=== PATIENT | female | born 1945 | race Caucasian/White ===

== ENCOUNTER 2017-09-17 08:30 | Inpatient (IN) | payer MEDICARE, OTHER ==
[2017-09-17] VITALS (11 sets, daily range): BP systolic 104–167; BP diastolic 57–102; PULSE 78–112; RESP 16–28; TEMP 97.6–98.4; O2SAT 91–97
[~2017-09-17] VITALS: Ht 170.2 cm; Wt 59.8 kg
[~2017-09-17 08:30] MED LIST: ACET20SO3 NEB; BUSP5TAB PEG; Budeson-Formot 160-4.5 Mcg Inh INH; CEFE2INJ2 IV; Chlorhexidine 0.12% Liq SWISH-SPIT; ENOX40IN SQ; FAMO40SU4 PEG; FLUT50SP EACH NARE; GABA250S7 PEG; GUAI100S7 PEG; IPRASOL INH; LACTG PEG; LEVO100T5 PEG; LOPE2CAP2 PO; METO25TA3 PEG; MIDO5TAB PO; Metoclopramide Liq PO; ONDA4TAB15 SL; PRED20 PO; SPIRCAP INH; TRAM50TA PEG; TRAZ50TA12 PEG; ZOSY3.375P IV
[2017-09-17] MEDS ORDERED: METO25TA3 PEG (08:35)
[2017-09-17] MEDS ORDERED: TRAZ50TA12 PEG (08:35)
[2017-09-17] MEDS: SODIUM CHLOR 0.9% 1000 ML INJ 1,000 ML IV SCH ×2 (09:27→21:20)
[2017-09-17] MEDS ORDERED: SENNOSIDES 8.6 MG TAB PO PRN (09:30)
[2017-09-17] MEDS ORDERED: ONDANSETRON ODT 4 MG TAB PO PRN (09:30)
[2017-09-17] MEDS ORDERED: LIDOCAINE HCL 2% 100 MG/5 ML SYRINGE IV PUSH ONE (09:30)
[2017-09-17] MEDS ORDERED: BISACODYL 10 MG SUPP RECTAL PRN (09:30)
[2017-09-17] MEDS ORDERED: LACTULOSE SYRUP 20 GM/30 ML CUP PO PRN (09:30)
[2017-09-17] MEDS ORDERED: SODIUM CHLORIDE 0.9% FLUSH 10 ML FLUSH IV FLUSH PRN (09:30)
[2017-09-17] MEDS ORDERED: ACETAMINOPHEN 325 MG TAB PO PRN (09:30)
[2017-09-17] MEDS ORDERED: CHLORHEXIDINE GLUCONATE 2 % 1 PACK (2 CLOTHS) TOP PRN (09:30)
[2017-09-17] MEDS ORDERED: RESP: ALBUTEROL 2.5 MG/3 ML NEB (PRN) INH (09:30)
[2017-09-17] MEDS ORDERED: NURSING INFORMATION XX SCH (09:30)
[2017-09-17] MEDS ORDERED: MAGNESIUM HYDROXIDE SUSP 30 ML CUP PO PRN (09:30)
[2017-09-17] MEDS ORDERED: Vancomycin Consult Pharmacy 1 EA OTHER SCH (09:45)
[2017-09-17] MEDS ORDERED: PILL SPLITTER OTHER PRN (10:00)
[2017-09-17] MEDS ORDERED: IOHEXOL 350 MG/ML 10 ML VIAL (for RAD DIAG) IVCONTRAST ONE (10:28)
--- NOTE | 2017-09-17 10:44 | HHI.HP ---
[facility] Service Critical Care Medicine Primary Care Physician Leon Osorio M.D. Admission Diagnosis Acute respiratory failure likely secondary to aspiration Diagnosis: (1) Acute and chronic respiratory failure with hypoxia Diagnosis: Principal (2) Aspiration pneumonia Diagnosis: Principal (3) Difficult airway for intubation Diagnosis: Principal (4) Thrombocytosis Diagnosis: Secondary (5) Leukocytosis Diagnosis: Secondary (6) Migraine headache Diagnosis: Secondary (7) Anemia of chronic disease Diagnosis: Secondary (8) Hypoalbuminemia Diagnosis: Secondary (9) S/P percutaneous endoscopic gastrostomy (PEG) tube placement Diagnosis: Secondary (10) Hypothyroidism Diagnosis: Secondary (11) HTN (hypertension) Diagnosis: Secondary (12) HLD (hyperlipidemia) Diagnosis: Secondary (13) Dysphagia Diagnosis: Principal (14) Adjustment disorder with anxiety Diagnosis: Secondary (15) Impaired mobility and activities of daily living Diagnosis: Secondary (16) Loculated pleural effusion Diagnosis: Secondary (17) Urinary retention Diagnosis: Principal Chief Complaint: Acute hypoxemia status post emesis in rehab Travel History International Travel<30 Days: No Contact w/Intl Traveler <30 Da: No Traveled to Known Affected Are: No Sepsis Criteria SIRS Criteria (2 or more): RR > 20 or PaCO2 < 32, WBC > 68404, < 4000 or > 10 % bands Sepsis Criteria (SIRS+source): Infect source susp/known History of Present Illness This is a 72-year-old female. Date of admission 09/17/2017. Past medical history includes laryngeal cancer status post radical neck dissection radiation therapy, essential hypertension, hyperlipidemia, hypothyroidism, depression/chronic dysphagia status post PEG tube placement and chronic respiratory failure status post tracheostomy. He was originally admitted to [facility] 07/24 with dysphasia. Due to workup she was noted to have a right-sided loculated pleural effusion. This was exudative and grew out Pseudomonas Aeruginosa.. Chest tubes were placed as the patient was thought to be too high risk due to high risk airway. She developed acute hypoxemic respiratory failure on July 23, 1999 he was intubated. Chest tubes removed August 12, 2017. She was trached and pegged. Further infectious etiology included stenotrophomonas August 15, 2017 treated with sulfamethoxazole/trimethoprim and Pseudomonas in sputum treated with cefepime. Tracheostomy was downsized to a # 6 Shiley on September 05, 2017. Patient was transferred [facility] where she was on room air with capped trach. Will evaluate pulmonology tracheostomy was removed early September 2017 Today, patient an episode of aspiration and desaturated. She is placed on 100% nonrebreather mask and transferred to [facility]. She had imaging which amount to locate in her medical record. She is currently on high flow nasal cannula with a repeat ABG pending. Chest x-ray revealed right lower lobe infiltrate/ effusion. All laboratories currently pending. Her airways approximately 2 cm once open. Review of Systems Constitutional: COMPLAINS OF: Weight loss, DENIES: Fatigue, Fever, Weight gain Endocrine: DENIES: Polydipsia, Polyuria Eyes: DENIES: Blurred vision, Vision loss Ears, nose, mouth, throat: DENIES: Tinnitus Respiratory: COMPLAINS OF: Sputum production, Shortness of breath, DENIES: Apneas, Wheezing Cardiovascular: DENIES: Chest pain Gastrointestinal: DENIES: Abdominal pain Genitourinary: DENIES: Urinary frequency Musculoskeletal: DENIES: Joint pain, Back pain Integumentary: DENIES: Pruritus Hematologic/lymphatic: DENIES: Bruising, Lymphadenopathy Immunologic/allergic: DENIES: Eczema Neurologic: DENIES: Abnormal gait, Headache Psychiatric: COMPLAINS OF: Anxiety, DENIES: Confusion, Depression Past Family Social History Allergies: Coded Allergies: ciprofloxacin (Unverified Adverse Reaction, Unknown, 09/11/17) Develops thrush Past Medical History Laryngeal cancer status post radical neck dissection/radiation therapy Migraine headache Adjustment disorder Anemia of chronic disease Essential hypertension Hyperlipidemia Chronic dysphasia Urinary retention Chronic prednisone use Loculated right pleural effusion/Pseudomonas gastroesophageal reflux disease Past Surgical History PEG tube placement Bladder suspension 2 Percutaneous tracheostomy Reported Medications Midrin 5 mg p.o. 3 x daily Tiotropium 18 mcg inhalation daily Gabapentin 100 mg by mouth daily Trazodone 100 mg by mouth at night Buspirone 5 mg by mouth 3 times daily Famotidine 20 mg by tube twice daily Prednisone 20 mg by tube twice daily Budesonide/formoterol 160/4.5 2 puffs twice daily Levothyroxine 100 mcg by mouth daily Metoprolol tartrate 12.5 mg by mouth twice daily Piperacillin/tazobactam 3.375 g IV every 8 hours Active Ordered Medications Reviewed in EMR Family History Mother with lung cancer Social History No tobacco, alcohol or illicit drug use Physical Exam Vital Signs Vital Signs Date Time Temp Pulse Resp B/P (MAP) Pulse Ox O2 Delivery O2 Flow Rate FiO2 09/17/17 10:00 98.1 112 28 167/102 (123) 95 09/17/17 07:25 91 15.00 09/17/17 07:25 91 Non-Rebreather 15.00 Physical Exam GENERAL: 72-year-old female currently resting in bed in mild respiratory distress SKIN: Warm and dry. Tinea cruris noted bilateral inguinal regions HEAD: Atraumatic. Normocephalic. EYES: Pupils equal and round about 3 mm bilaterally and reactive. No scleral icterus. No injection or drainage. ENT: No nasal bleeding or discharge. Mucous membranes pink and moist. NECK: Status post removal of tracheostomy with one suture in place. No erythema noted. Approximately 4 cm closing CARDIOVASCULAR: Regular rate and rhythm. S1, S2 predose for without murmur RESPIRATORY: No accessory muscle use. Coarse rhonchorous breath sounds are present bilaterally. No stridor. GASTROINTESTINAL: Abdomen soft, non-tender, nondistended. PEG tube placed in left upper quadrant. Clean dry and intact MUSCULOSKELETAL: Extremities without significant peripheral edema. No obvious deformities. NEUROLOGICAL: Awake and alert. No obvious cranial nerve deficits. Motor grossly within normal limits. Five out of 5 muscle strength in the arms and legs. Normal fluent speech. Imaging Chest x-ray revealed right lower lobe infiltrate/pleural effusion. Hyperexpanded with Septic Shock Reassessment Septic shock perfusion: reassessment completed Caprini VTE Risk Assessment Caprini VTE Risk Assessment: Mod/High Risk (score >= 2) Caprini Risk Assessment Model Point Value = 1 Point Value = 2 Point Value = 3 Point Value = 5 Age 41-60 Minor surgery BMI > 25 kg/m2 Swollen legs Varicose veins or History of unexplained or recurrent spontaneous Oral contraceptives or hormone replacement Sepsis (< 1 month) Serious lung disease, including pneumonia (< 1 month) Abnormal pulmonary function Acute myocardial infarction Congestive heart failure (< 1 month) History of inflammatory bowel disease Medical patient at bed rest Age 61-74 Arthroscopic surgery Major open surgery (> 45 min) Laparoscopic surgery (> 45 min) Malignancy Confined to bed (> 72 hours) Immobilizing plaster cast Central venous access Age >= 75 History of VTE Family history of VTE Factor V Leiden Prothrombin [id number] Lupus anticoagulant Anticardiolipin antibodies Elevated serum homocysteine Heparin-induced thrombocytopenia Other congenital or acquired thrombophilia Stroke (< 1 month) Elective arthroplasty Hip, pelvis, or leg fracture Acute spinal cord injury (< 1 month) Prophylaxis Regimen Total Risk Factor Score Risk Level Prophylaxis Regimen 0-1 Low Early ambulation 2 Moderate Order ONE of the following: *Sequential Compression Device (SCD) *Heparin 5000 units SQ BID 3-4 Higher Order ONE of the following medications: *Heparin 5000 units SQ TID *Enoxaparin/Lovenox 40 mg SQ daily (WT < 150 kg, CrCl > 30 mL/min) *Enoxaparin/Lovenox 30 mg SQ daily (WT < 150 kg, CrCl > 10-29 mL/min) *Enoxaparin/Lovenox 30 mg SQ BID (WT < 150 kg, CrCl > 30 mL/min) AND/OR *Sequential Compression Device (SCD) 5 or more Highest Order ONE of the following medications: *Heparin 5000 units SQ TID (Preferred with Epidurals) *Enoxaparin/Lovenox 40 mg SQ daily (WT < 150 kg, CrCl > 30 mL/min) *Enoxaparin/Lovenox 30 mg SQ daily (WT < 150 kg, CrCl > 10-29 mL/min) *Enoxaparin/Lovenox 30 mg SQ BID (WT < 150 kg, CrCl > 30 mL/min) AND *Sequential Compression Device (SCD) Assessment and Plan Assessment and Plan Neuro/Psych: Adjustment disorder Depression/anxiety Peripheral neuropathy Medications include gabapentin 100 mg at night, trazodone 100 mg at night and buspirone 5 mg every 8 hours Acetaminophen 650 mg by tube every 6 hours as needed fever Hydrocodone/acetaminophen 5/25 1 tablet every 4 hours as needed pain 1 through 5 Morphine sulfate 2 mg every 2 hours as needed CV: Essential hypertension Currently normal saline at 84 cc an hour Currently metoprolol tartrate 12.5 mg by mouth twice daily continue. Patient is on midodrine 5 mg 3 times daily? Resp: Acute on chronic respiratory failure Previously followed by Dr. Clayton Removal of percutaneous tracheostomy 09/23 Currently on high flow nasal cannula 35 L/minute 70% FiO2 09/17 CT pulmonary angiogram revealed no evidence of pulmonary embolism. Increasing groundglass opacity and consolidating airspace disease throughout both lungs. Stable bilateral pleural effusions. Chest x-ray on 4 revealed right lower lobe infiltrate/effusion Currently on albuterol/ipratropium aerosols every 4 hours with albuterol aerosols every 2 hours as needed dyspnea Difficult airway. Patient is only able to open her mouth 2 cm. GI: Hypoalbuminemia Nausea/vomiting Tube feeding on hold secondary to aspiration Check LFTs, amylase lipase. Check KUB Famotidine 20 mg twice daily/prior medication currently hold. Currently on pantoprazole 40 mg IV daily Docusate sodium/senna 1 tablet twice daily for bowel regimen : History of bladder suspension 2 Urinary retention Patient was straight cathed on the floor. Endo: Chronic prednisone use Switch prednisone 20 mg twice daily to his methylprednisolone succinate 40 mg IV twice daily Sliding scale insulin with Novulog with Accu-Cheks every 6 hours to maintain euglycemia/low regimen Renal: Creatinine previously within normal limits Monitor urine output Accurate I's and O Heme: Leukocytosis Anemia of chronic disease Thrombocytosis likely reactive Monitor CBC daily and coags. Follow trends No indication for transfusion of blood products at this time ID: Aspiration pneumonia Pseudomonas aeruginosa pneumonia/sputum positive History of Acinobacter History of Pseudomonas empyema History of Sangeeta tropicalis cystitis Currently piperacillin/tazobactam and vancomycin Blood cultures 2, sputum and UA all ordered MSK: PT evaluate and treat FEN: Replace electrolytes as clinically indicated Access -Left upper extremity PICC triple lumen Prophylaxis -GI -pantoprazole -DVT -SCD/enoxaparin Critical Care: The total critical care time was 35 minutes. Time to perform other separately billable procedures was not included in the critical care time. Code Status Full code Discussed Condition With Patient. ISC RN. CARE plan discussed and all questions answered. Problem Qualifiers (1) Aspiration pneumonia: Qualified Codes: J69.0 - Pneumonitis due to inhalation of food and vomit (2) Leukocytosis: Qualified Codes: D72.829 - Elevated white blood cell count, unspecified (3) Migraine headache: Qualified Codes: G43.909 - Migraine, unspecified, not intractable, without status migrainosus (4) Hypothyroidism: Qualified Codes: E03.9 - Hypothyroidism, unspecified (5) HTN (hypertension): Qualified Codes: I10 - Essential (primary) hypertension (6) HLD (hyperlipidemia): Qualified Codes: E78.00 - Pure hypercholesterolemia, unspecified (7) Dysphagia: Qualified Codes: R13.10 - Dysphagia, unspecified Deandre Barahona MD Sep 17, 2017 10:44
[2017-09-17] MEDS ORDERED: LABETALOL HCL 100 MG/20 ML VIAL IV PUSH PRN (10:45)
[2017-09-17] MEDS ORDERED: DEXTROSE 50% IN WATER 50 ML VIAL(D50) IV PUSH PRN (10:45)
[2017-09-17] MEDS ORDERED: GLUCAGON 1 MG/ML VIAL OTHER PRN (10:45)
[2017-09-17] MEDS: MORPHINE SULFATE 4 MG/ML INJ IV PUSH PRN ×2 (11:17→13:57)
[2017-09-17] MEDS: PIPERACIL-TAZO 4.5 GM PREMIX 100 ML IV SCH ×3 (11:18→21:21)
[2017-09-17] MEDS: ENOXAPARIN SODIUM 40 MG/0.4 ML SYRINGE SQ SCH (11:18)
[2017-09-17 11:52] LABS: INTERNATIONAL NORMALIZED RATIO 1.1 RATIO; PROTHROMBIN TIME - PATIENT 11.1 SEC (9.8-11.6)
[2017-09-17] MEDS: INSULIN ASPART SUPPLEMENTAL SCALE SQ SCH ×3 (12:00→23:29)
[2017-09-17] MEDS ORDERED: VANCOMYCIN INJ 1,250 MG in SODIUM CHLOR 0.9% 250 ML INJ 250 ML IV ONE (12:00)
[2017-09-17 12:03] LABS: ALBUMIN 2.7 GM/DL (3.4-5.0); AST (GOT) 17 U/L (15-37); BICARBONATE 34.5 MEQ/L (21.0-32.0); BLOOD UREA NITROGEN 21 MG/DL (7-18); CALCIUM 9.4 MG/DL (8.5-10.1); CHLORIDE 84 MEQ/L (98-107); CHOLESTEROL 222 MG/DL (120-200); CREATININE 0.58 MG/DL (0.50-1.00); DIRECT BILIRUBIN ADULT 0.1 MG/DL (0.0-0.2); GLOMERULAR FILTRATION RATE 103 ML/MIN (>89); GLUCOSE,RANDOM 144 MG/DL (74-106); SODIUM (NA) 132 MEQ/L (136-145); TRIGLYCERIDES 115 MG/DL (42-150)
[2017-09-17 12:14] LABS: ALKALINE PHOSPHATASE 106 U/L (45-117); ALT (GPT) 27 U/L (10-53); CHOLESTEROL/ HDL RATIO 4.22 RATIO; HDL CHOLESTEROL 52.5 MG/DL (40.0-60.0); INDIRECT BILIRUBIN 0.1 MG/DL (0.0-0.8); LDL CHOLESTEROL 147 MG/DL (0-99); PHOSPHORUS 3.3 MG/DL (2.5-4.9); TOTAL BILIRUBIN ADULT 0.2 MG/DL (0.2-1.0); TOTAL PROTEIN 7.6 GM/DL (6.4-8.2); TROPONIN I LESS THAN 0.02 NG/ML (0.02-0.05)
[2017-09-17] MEDS: MIDODRINE 5 MG TAB PO SCH ×2 (13:45→16:24)
[2017-09-17] MEDS: RESP: ALBUTEROL 2.5 MG/IPRATROPIUM 0.5 MG NEB (SCH) INH ×3 (16:53→23:27)
[2017-09-17] MEDS ORDERED: SODIUM CHLORID 0.9% 500 ML INJ 500 ML IV ONE (17:15)
[2017-09-17] MEDS ORDERED: ALBUMIN 5% INJ 250 ML IV ONE (17:15)
[2017-09-17 17:17] LABS: HEMOGLOBIN A1C 4.4 % (4.3-6.0)
[2017-09-17 18:00] LABS: HEMATOCRIT 22.7 % (35.0-46.0); HEMOGLOBIN 7.7 GM/DL (11.6-15.3); MEAN CORPUSCULAR HEMOGLOBIN 30.4 PG (27.0-34.0); MEAN CORPUSCULAR HGB CONC 33.8 % (32.0-36.0); MEAN PLATELET VOLUME 6.1 FL (7.0-11.0); PLATELET COUNT 485 TH/MM3 (150-450); RED BLOOD COUNT 2.52 MIL/MM3 (4.00-5.30); WHITE BLOOD COUNT 19.5 TH/MM3 (4.0-11.0)
--- NOTE | 2017-09-17 18:16 | MB ---
cc: Lizbet Clayton MD, V J MD DATE: 09/17/2017 REASON FOR CONSULTATION: Respiratory failure and history of tracheostomy. HISTORY OF PRESENT ILLNESS: This is a 72-year-old lady who has a past history for an upper airway squamous cell carcinoma who has had a history of respiratory failure and had a tracheostomy in place for the past month. The patient was initially admitted to [facility] ([place], [place]) and was treated for pneumonia and respiratory failure. She has had a prior history for radical neck dissection for laryngeal CA and dysphagia and has a PEG tube in place for tube feedings. Following her bout of respiratory failure and ventilator support, she was weaned off the ventilator and had her trach tube capped after which she was transferred to rehab at [facility]. She also had loculated right pleural effusion, which was drained prior to her transfer and this grew out Pseudomonas and she has been under antibiotic therapy given by the infectious disease service, which also included cefepime and Bactrim. The patient's tracheostomy tube was capped this past week and it was discontinued when she was doing well with just a nasal cannula at 2 liters. Over the past 2 days, the patient got worse with an episode of choking and aspiration while taking her diet and she had to be transferred to the intensive care unit for respiratory distress. Her O2 saturations were low and she thus has been placed on high flow oxygen at 50% FiO2 and is receiving nebulized bronchodilators as well as IV Solu-Medrol. She is coughing and does not bring up much sputum. She is running some low-grade fevers. Denies any chest or abdominal pains. PAST MEDICAL HISTORY: Has included laryngeal cancer, status post neck dissection and radiation therapy, history of hypertension and anemia, history of migraine headaches, hyperlipidemia, history of esophageal dysfunction and a history of recurrent pleural effusions and GERD. She has had bladder suspension surgery and tracheostomy. MEDICATIONS: 1. Trazodone 100 mg at bedtime. 2. Gabapentin 100 mg daily. 3. Prednisone 20 mg b.i.d. 4. Famotidine 20 mg b.i.d. 5. BuSpar 5 mg t.i.d. 6. Levothyroxine 100 mcg daily. 7. Symbicort 160/4.5 two puffs b.i.d. 8. Zosyn IV 3.375 grams every 8 hours. FAMILY HISTORY: Significant for lung cancer in her mother. HABITS AND SOCIAL HISTORY: The patient does not smoke. No significant alcohol use. REVIEW OF SYSTEMS: The patient has shortness of breath, cough, wheezing, chest congestion. No nausea, vomiting. No urinary symptoms. No leg or calf muscle pains, She has some joint pains of her extremities and some depression. PHYSICAL EXAMINATION: GENERAL: This is a thinly built, elderly lady was pale and mildly dyspneic at rest. VITAL SIGNS: Blood pressure 150/80, pulse is 105, respirations 22, temperature is 98.1. HEENT: Head is normocephalic. Pupils are reactive. Tongue is dry. Throat is injected. NECK: Supple. No bruits. No venous distention. Trach site is closed with a dressing. CHEST: Reveals coarse wheezes throughout both lung benito, prolonged expirations with occasional basilar crackles. HEART: Sounds are regular, S1 and S2. No murmur. ABDOMEN: Soft, scaphoid. No mass. No organomegaly. EXTREMITIES: No lesions. Decreased pulses. NEUROLOGIC: Reflexes are 1+ with no gross motor deficits. SKIN: Dry and cool. IMPRESSION: 1. Aspiration pneumonia with hypoxemia. 2. History of tracheostomy tube placement and removal. 3. History of laryngeal cancer status post resection and radiation 4. Chronic dysphagia. PLAN: The patient has been placed on antibiotic coverage, which includes vancomycin 1 gram b.i.d. and Zosyn. She also is on Solu-Medrol 40 mg IV q.12 hours, which we will continue. Nebulized DuoNeb solution added every 6 hours and a followup chest x-ray to be done in a.m. We will wean the O2 down to 40% FiO2 and switch her to a nasal cannula at 5 liters. BiPAP will be used if necessary if she desaturates at night and a followup chest x-ray to be done in a.m. Incentive spirometry to be used every 2 hours. I will follow the case with you, for Jun. Thank you for this consultation. Lizbet Clayton MD VJD/ , 05:39 PM , 06:15 PM
[2017-09-17] MEDS ORDERED: predniSONE 20 MG TAB PO SCH (21:00)
[2017-09-17] MEDS: DOCUSATE SODIUM 50 MG/SENNA 8.6 MG TAB PO SCH (21:00)
[2017-09-17] MEDS: BUDESONIDE-FORMOTEROL 160/4.5 MCG INHALER INH SCH (21:00)
[2017-09-17] MEDS: SODIUM CHLORIDE 0.9% FLUSH 10 ML FLUSH IV FLUSH SCH (21:20)
[2017-09-17] MEDS: methylPREDNISolone SOD SUCC 40 MG/1 ML VIAL IV PUSH SCH (21:20)
[2017-09-17] MEDS: traZODone HCL 100 MG TAB PEG SCH (21:20)
[2017-09-17] MEDS: METOPROLOL TARTRATE 25 MG TAB PEG SCH (21:21)
[2017-09-17] MEDS: GABAPENTIN 250 MG/5 ML UDC PEG SCH (21:21)
[2017-09-17] MEDS: ACETAMINOPHEN 650 MG/20.3 ML UDC PEG PRN (21:24)
[2017-09-17] MEDS: guaiFENesin/CODEINE SYRUP 200 MG/20 MG/10 ML CUP PO PRN (21:33)
[2017-09-17] MEDS: ACETAMINOPHEN/HYDROcodone 325 MG/5 MG TAB PO PRN (21:37)
[2017-09-17] MEDS: VANCOMYCIN 1,000 MG/NS 250 ML IV SCH ×2 (23:18)
[2017-09-18] VITALS (12 sets, daily range): BP systolic 103–179; BP diastolic 58–90; PULSE 79–109; RESP 14–24; TEMP 98–98.9; O2SAT 93–100
[2017-09-18] MEDS: CHLORHEXIDINE GLUCONATE 2 % 1 PACK (2 CLOTHS) TOP SCH (04:00)
[2017-09-18] MEDS: RESP: ALBUTEROL 2.5 MG/IPRATROPIUM 0.5 MG NEB (SCH) INH ×5 (04:00→20:33)
[2017-09-18] MEDS: PIPERACIL-TAZO 4.5 GM PREMIX 100 ML IV SCH ×4 (05:04→23:02)
[2017-09-18] MEDS: INSULIN ASPART SUPPLEMENTAL SCALE SQ SCH ×4 (05:04→23:42)
[2017-09-18] MEDS: MIDODRINE 5 MG TAB PO SCH ×3 (05:04→17:00)
[2017-09-18] MEDS: LEVOTHYROXINE SODIUM 100 MCG TAB PEG SCH (05:04)
--- NOTE | 2017-09-18 05:24 | RADRPT ---
EXAM DATE: 09/18/2017 5:20 AM EDT AGE/SEX: 72 years / Female INDICATIONS: Shortness of breath. CLINICAL DATA: This is the patient's subsequent encounter. Patient reports that signs and symptoms h ave been present for 2 weeks and indicates a pain score of Nonresponsive. MEDICAL/SURGICAL HISTORY: Asthma. Chronic obstructive pulmonary disease. None. COMPARISON: [facility], CHEST SINGLE AP, 09/17/2017. . FINDINGS: Single AP view the chest. Left-sided PICC line again seen. Persistent bilateral lower lung zone pulmo nary parenchymal opacity and small right pleural effusion. No significant interval change. No evidenc e of pneumothorax. CONCLUSION: No significant interval change with persistent bilateral lower lung zone pulmonary parenchymal opacit y and small right pleural effusion. Electronically signed by: Florentino Whalen MD 09/18/2017 5:22 AM EDT
[2017-09-18 07:04] LABS: AUTOMATED NEUTROPHIL # 19.1 TH/MM3 (1.8-7.7); BASOPHIL % 0.1 % (0.0-2.0); EOSINOPHIL % 0.1 % (0.0-4.0); HEMATOCRIT 25.8 % (35.0-46.0); HEMOGLOBIN 8.5 GM/DL (11.6-15.3); LYMPH % 3.2 % (9.0-44.0); LYMPHOCYTE # 0.6 TH/MM3 (1.0-4.8); MEAN CELL VOLUME 90.2 FL (80.0-100.0); MEAN CORPUSCULAR HEMOGLOBIN 29.6 PG (27.0-34.0); MEAN CORPUSCULAR HGB CONC 32.8 % (32.0-36.0); MEAN PLATELET VOLUME 6.1 FL (7.0-11.0); MONO % 1.2 % (0.0-8.0); MONOCYTE # 0.2 TH/MM3 (0-0.9); NEUT % 95.4 % (16.0-70.0); PLATELET COUNT 501 TH/MM3 (150-450); RED BLOOD COUNT 2.86 MIL/MM3 (4.00-5.30); RED CELL DISTRIBUTION WIDTH 16.2 % (11.6-17.2); WHITE BLOOD COUNT 20.1 TH/MM3 (4.0-11.0)
[2017-09-18 07:12] LABS: INTERNATIONAL NORMALIZED RATIO 1.2 RATIO; PROTHROMBIN TIME - PATIENT 12.1 SEC (9.8-11.6)
[2017-09-18 07:13] LABS: ALBUMIN 2.4 GM/DL (3.4-5.0); ALKALINE PHOSPHATASE 75 U/L (45-117); ALT (GPT) 17 U/L (10-53); AST (GOT) 12 U/L (15-37); BICARBONATE 32.9 MEQ/L (21.0-32.0); BLOOD UREA NITROGEN 21 MG/DL (7-18); CALCIUM 8.5 MG/DL (8.5-10.1); CHLORIDE 93 MEQ/L (98-107); CREATININE 0.49 MG/DL (0.50-1.00); GLOMERULAR FILTRATION RATE 125 ML/MIN (>89); GLUCOSE,RANDOM 105 MG/DL (74-106); MAGNESIUM 2.1 MG/DL (1.5-2.5); PHOSPHORUS 3.3 MG/DL (2.5-4.9); SODIUM (NA) 135 MEQ/L (136-145); TOTAL BILIRUBIN ADULT 0.3 MG/DL (0.2-1.0); TOTAL PROTEIN 6.5 GM/DL (6.4-8.2)
[2017-09-18] MEDS: guaiFENesin/CODEINE SYRUP 200 MG/20 MG/10 ML CUP PO PRN (07:46)
[2017-09-18] MEDS: BUDESONIDE-FORMOTEROL 160/4.5 MCG INHALER INH SCH ×2 (09:00→20:46)
[2017-09-18] MEDS: DOCUSATE SODIUM 50 MG/SENNA 8.6 MG TAB PO SCH ×2 (09:00→20:45)
[2017-09-18] MEDS: SODIUM CHLORIDE 0.9% FLUSH 10 ML FLUSH IV FLUSH SCH ×2 (09:00→20:45)
--- NOTE | 2017-09-18 09:11 | HHI.CCPN ---
Subjective Remarks/Hospital Course Admission Diagnosis Acute respiratory failure likely secondary to aspiration Diagnosis: (1) Acute and chronic respiratory failure with hypoxia Diagnosis: Principal (2) Aspiration pneumonia Diagnosis: Principal (3) Difficult airway for intubation Diagnosis: Principal (4) Thrombocytosis Diagnosis: Secondary (5) Leukocytosis Diagnosis: Secondary (6) Migraine headache Diagnosis: Secondary (7) Anemia of chronic disease Diagnosis: Secondary (8) Hypoalbuminemia Diagnosis: Secondary (9) S/P percutaneous endoscopic gastrostomy (PEG) tube placement Diagnosis: Secondary (10) Hypothyroidism Diagnosis: Secondary (11) HTN (hypertension) Diagnosis: Secondary (12) HLD (hyperlipidemia) Diagnosis: Secondary (13) Dysphagia Diagnosis: Principal (14) Adjustment disorder with anxiety Diagnosis: Secondary (15) Impaired mobility and activities of daily living Diagnosis: Secondary (16) Loculated pleural effusion Diagnosis: Secondary (17) Urinary retention Diagnosis: Principal Chief Complaint: Acute hypoxemia status post emesis in rehab This is a 72-year-old female. Date of admission 09/17/2017. Past medical history includes laryngeal cancer status post radical neck dissection radiation therapy, essential hypertension, hyperlipidemia, hypothyroidism, depression/chronic dysphagia status post PEG tube placement and chronic respiratory failure status post tracheostomy. He was originally admitted to [facility] 07/24 with dysphasia. Due to workup she was noted to have a right-sided loculated pleural effusion. This was exudative and grew out Pseudomonas Aeruginosa.. Chest tubes were placed as the patient was thought to be too high risk due to high risk airway. She developed acute hypoxemic respiratory failure on July 23, 1999 he was intubated. Chest tubes removed August 12, 2017. She was trached and pegged. Further infectious etiology included stenotrophomonas August 15, 2017 treated with sulfamethoxazole/trimethoprim and Pseudomonas in sputum treated with cefepime. Tracheostomy was downsized to a # 6 Shiley on September 05, 2017. Patient was transferred to [facility] where she was on room air with capped trach. Will evaluate pulmonology tracheostomy was removed early September 2017. On 09/17, patient an episode of aspiration and desaturated. She is placed on 100% nonrebreather mask and transferred to [facility]. She had imaging which amount to locate in her medical record. She is currently on high flow nasal cannula with a repeat ABG pending. Chest x-ray revealed right lower lobe infiltrate/ effusion. All laboratories currently pending. Her mouth opening is approximately 2 cm. 09/18: Breathing comfortably today, albeit with increased fractional inspiratory concentration. We will work toward getting her Objective Vital Signs Date Time Temp Pulse Resp B/P (MAP) Pulse Ox O2 Delivery O2 Flow Rate FiO2 09/18/17 08:58 100 High Flow Nasal Cannula 35.00 50 09/18/17 06:00 86 09/18/17 04:00 98.1 14 113/63 (80) Intake and Output 09/18/17 09/18/17 09/19/17 08:00 16:00 00:00 Intake Total 250 ml Output Total 500 ml Balance -250 ml Result Diagram: 09/18/17 0602 09/18/17 0600 Other Results Laboratory Tests Test 09/17/17 14:15 Blood Gas Puncture Site LT RADIAL Blood Gas Patient Temperature 98.6 Blood Gas HCO3 37 mmol/L (22-26) Blood Gas Base Excess 13.0 mmol/L (-2-2) Blood Gas Oxygen Saturation 93 % (90-100) Arterial Blood pH 7.49 (7.380-7.420) Arterial Blood Partial Pressure CO2 50 mmHg (38-42) Arterial Blood Partial Pressure O2 68 mmHg (61-120) Arterial Blood Oxygen Content 14.0 Vol % (12.0-20.0) Arterial Blood Carboxyhemoglobin 1.6 % (0-4) Arterial Blood Methemoglobin 0.8 % (0-2) Blood Gas Hemoglobin 10.7 G/DL (12.0-16.0) Oxygen Delivery Device NASAL CANNULA Blood Gas Liter Flow 35 L/M Blood Gas Inspired Oxygen 60 % Imaging Chest x-ray revealed right lower lobe infiltrate/pleural effusion. Hyperexpanded with Objective Remarks GENERAL: 72-year-old female, resting in bed, no respiratory distress SKIN: Warm and dry. Tinea cruris noted bilateral inguinal regions HEAD: Atraumatic. Normocephalic. EYES: Pupils equal and round about 2 mm bilaterally and reactive. No scleral icterus. No injection or drainage. ENT: No nasal bleeding or discharge. Mucous membranes pink and moist. NECK: Status post removal of tracheostomy with one suture in place. No erythema noted. CARDIOVASCULAR: Regular rate and rhythm. S1, S2 predose for without murmur RESPIRATORY: No accessory muscle use. Coarse rhonchi bilaterally, much improved , no stridor or upper airway obstruction.. GASTROINTESTINAL: Abdomen soft, non-tender, nondistended. PEG tube placed in left upper quadrant. Clean dry and intact MUSCULOSKELETAL: Extremities without significant peripheral edema. No obvious deformities. Warm, well-perfused limbs. NEUROLOGICAL: Awake and alert. No obvious cranial nerve deficits. Motor grossly within normal limits. Five out of 5 muscle strength in the arms and legs. Normal fluent speech. Conversational. A/P Assessment and Plan Neuro/Psych: Adjustment disorder Depression/anxiety Peripheral neuropathy Medications include gabapentin 100 mg at night, trazodone 100 mg at night and buspirone 5 mg every 8 hours Acetaminophen 650 mg by tube every 6 hours as needed fever Hydrocodone/acetaminophen 5/25 1 tablet every 4 hours as needed pain 1 through 5 Morphine sulfate 2 mg every 2 hours as needed CV: Essential hypertension Currently normal saline at 84 cc an hour Currently metoprolol tartrate 12.5 mg by mouth twice daily continue. Patient is on midodrine 5 mg 3 times daily? Resp: Acute on chronic respiratory failure Previously followed by Dr. Clayton Removal of percutaneous tracheostomy 09/23 Currently on high flow nasal cannula 35 L/minute 70% FiO2 09/17 CT pulmonary angiogram revealed no evidence of pulmonary embolism. Increasing groundglass opacity and consolidating airspace disease throughout both lungs. Stable bilateral pleural effusions. Chest x-ray on 4 revealed right lower lobe infiltrate/effusion Currently on albuterol/ipratropium aerosols every 4 hours with albuterol aerosols every 2 hours as needed dyspnea Difficult airway. Patient is only able to open her mouth 2 cm. GI: Hypoalbuminemia Nausea/vomiting Tube feeding on hold secondary to aspiration Check LFTs, amylase lipase. Check KUB Famotidine 20 mg twice daily/prior medication currently hold. Currently on pantoprazole 40 mg IV daily Docusate sodium/senna 1 tablet twice daily for bowel regimen : History of bladder suspension 2 Urinary retention Patient was straight cathed on the floor. Endo: Chronic prednisone use Switch prednisone 20 mg twice daily to his methylprednisolone succinate 40 mg IV twice daily Sliding scale insulin with Novulog with Accu-Cheks every 6 hours to maintain euglycemia/low regimen Renal: Creatinine previously within normal limits Monitor urine output Accurate I's and O Heme: Leukocytosis Anemia of chronic disease Thrombocytosis likely reactive Monitor CBC daily and coags. Follow trends No indication for transfusion of blood products at this time ID: Aspiration pneumonia Pseudomonas aeruginosa pneumonia/sputum positive History of Acinobacter History of Pseudomonas empyema History of Sangeeta tropicalis cystitis Currently piperacillin/tazobactam and vancomycin Blood cultures 2, sputum and UA all ordered MSK: PT evaluate and treat FEN: Replace electrolytes as clinically indicated Access -Left upper extremity PICC triple lumen Prophylaxis -GI -pantoprazole -DVT -SCD/enoxaparin Overall impression: She presented in severe respiratory distress following a probable aspiration event yesterday. She is much improved today and should be able to return to [facility] shortly. Restart TFs, convert back to oral/PEG meds, double Robitussin dose. Aayush Painter MD Sep 18, 2017 09:10
[2017-09-18] MEDS: methylPREDNISolone SOD SUCC 40 MG/1 ML VIAL IV PUSH SCH ×2 (09:16→20:44)
[2017-09-18] MEDS: METOPROLOL TARTRATE 25 MG TAB PEG SCH ×2 (09:17→20:44)
[2017-09-18] MEDS: PANTOPRAZOLE SODIUM 40 MG VIAL IV PUSH SCH (09:17)
[2017-09-18] MEDS: SODIUM CHLOR 0.9% 1000 ML INJ 1,000 ML IV SCH ×2 (09:17→21:12)
[2017-09-18] MEDS: FLUTICASONE PROPIONATE 50 MCG/ACT 16 GM NASAL SPRAY EACH NARE SCH (09:20)
--- NOTE | 2017-09-18 09:35 | EKG ---
Date Performed: 09/17/2017 Time Performed: 13:30:00 PTAGE: 72 years EKG: SINUS TACHYCARDIA WITH OCCASIONAL VENTRICULAR PREMATURE COMPLEXES ABNORMAL RHYTHM ECG PREVIOUS TRACING : 10/11/2006 12.28 DOCTOR: Asim Rich Interpretating Date/Time 09/18/2017 09:32:52
[2017-09-18] MEDS: ACETAMINOPHEN/HYDROcodone 325 MG/5 MG TAB PO PRN ×3 (09:53→19:27)
[2017-09-18] MEDS: ENOXAPARIN SODIUM 40 MG/0.4 ML SYRINGE SQ SCH (10:00)
[2017-09-18] MEDS: VANCOMYCIN 1,000 MG/NS 250 ML IV SCH ×4 (12:00→23:59)
--- NOTE | 2017-09-18 13:24 | HHI.PR ---
Subjective Remarks Feels better today. On N/C at 3 L. On tube feeds .Good output. Objective Vital Signs Date Time Temp Pulse Resp B/P (MAP) Pulse Ox O2 Delivery O2 Flow Rate FiO2 09/18/17 11:43 100 Nasal Cannula 5.00 09/18/17 08:58 100 High Flow Nasal Cannula 35.00 50 09/18/17 06:00 86 09/18/17 04:00 98.1 79 14 113/63 (80) 100 09/18/17 04:00 79 09/18/17 02:00 80 09/18/17 00:00 98.2 83 17 113/62 (79) 98 09/18/17 00:00 83 09/17/17 22:00 78 09/17/17 20:09 97 High Flow Nasal Cannula 35.00 50 09/17/17 20:00 94 09/17/17 20:00 97.6 94 25 123/61 (81) 97 09/17/17 19:00 98 Nasal Cannula 35.00 60 09/17/17 18:00 96 09/17/17 16:00 93 09/17/17 16:00 98.0 93 16 104/59 (74) 96 09/17/17 14:00 102 I/O 09/17/17 09/17/17 09/17/17 09/18/17 09/18/17 09/18/17 07:00 15:00 23:00 07:00 15:00 23:00 Intake Total 350 ml 1000 ml 350 ml Output Total 1400 ml 500 ml Balance 350 ml -400 ml -150 ml Intake Oral 0 ml 0 ml 0 ml IV Total 350 ml 1000 ml 350 ml Output Urine Total 1400 ml 500 ml # Bowel Movements 0 1 Result Diagram: 09/18/17 0602 09/18/17 0600 Objective Remarks GENERAL: This is a thinly built, elderly lady was pale and not dyspneic at rest.. HEENT: Head is normocephalic. Pupils are reactive. Tongue is dry. Throat is injected. NECK: Supple. No bruits. No venous distention. Trach site is closed with a dressing. CHEST: Reveals occ wheezes throughout both lung benito, prolonged expirations with occasional basilar crackles. HEART: Sounds are regular, S1 and S2. No murmur. ABDOMEN: Soft, scaphoid. No mass. No organomegaly. EXTREMITIES: No lesions. Decreased pulses. NEUROLOGIC: Reflexes are 1+ with no gross motor deficits. SKIN: Dry and cool. Assessment and Plan Assessment and Plan IMPRESSION: 1. Aspiration pneumonia with hypoxemia. 2. History of tracheostomy tube placement and removal. 3. History of laryngeal cancer status post resection and radiation 4. Chronic dysphagia. Plan: 1. Continue antibiotics. 2. Wean O2 to 3 L. 3. Nebs qid , duoneb. 4. Chest XRay ,BMP 5. Cont Solumedrol 40 mg BID 6. Transfer to [facility] Lizbet Clayton MD Sep 18, 2017 13:24
[2017-09-18] MEDS: guaiFENesin SOLUTION 200 MG/10 ML CUP PEG PRN ×2 (13:38→20:45)
[2017-09-18] MEDS: traZODone HCL 100 MG TAB PEG SCH (20:44)
[2017-09-18] MEDS: GABAPENTIN 250 MG/5 ML UDC PEG SCH (20:44)
[2017-09-18] MEDS: ACETAMINOPHEN 650 MG/20.3 ML UDC PEG PRN (20:54)
[2017-09-18] MEDS ORDERED: PHARMACY ORDERED LAB ONE (23:45)
[2017-09-19] VITALS (17 sets, daily range): BP systolic 116–157; BP diastolic 65–80; PULSE 81–93; RESP 17–33; TEMP 98.2–99; O2SAT 92–100
[2017-09-19] MEDS: RESP: ALBUTEROL 2.5 MG/IPRATROPIUM 0.5 MG NEB (SCH) INH ×7 (00:08→23:22)
[2017-09-19] MEDS: CHLORHEXIDINE GLUCONATE 2 % 1 PACK (2 CLOTHS) TOP SCH (04:00)
[2017-09-19 05:30] LABS: AUTOMATED NEUTROPHIL # 19.3 TH/MM3 (1.8-7.7); BASOPHIL % 0.1 % (0.0-2.0); HEMATOCRIT 22.1 % (35.0-46.0); HEMOGLOBIN 7.9 GM/DL (11.6-15.3); LYMPH % 2.9 % (9.0-44.0); LYMPHOCYTE # 0.6 TH/MM3 (1.0-4.8); MEAN CORPUSCULAR HEMOGLOBIN 31.6 PG (27.0-34.0); MEAN CORPUSCULAR HGB CONC 35.5 % (32.0-36.0); MEAN PLATELET VOLUME 5.9 FL (7.0-11.0); MONOCYTE # 0.4 TH/MM3 (0-0.9); PLATELET COUNT 515 TH/MM3 (150-450); RED BLOOD COUNT 2.49 MIL/MM3 (4.00-5.30); RED CELL DISTRIBUTION WIDTH 16.1 % (11.6-17.2); WHITE BLOOD COUNT 20.3 TH/MM3 (4.0-11.0)
[2017-09-19] MEDS: LEVOTHYROXINE SODIUM 100 MCG TAB PEG SCH (05:34)
[2017-09-19] MEDS: PIPERACIL-TAZO 4.5 GM PREMIX 100 ML IV SCH ×4 (05:34→20:55)
[2017-09-19] MEDS: MIDODRINE 5 MG TAB PO SCH ×4 (05:34→16:41)
[2017-09-19] MEDS: INSULIN ASPART SUPPLEMENTAL SCALE SQ SCH ×4 (05:35→23:18)
[2017-09-19 05:54] LABS: BICARBONATE 26.3 MEQ/L (21.0-32.0); CALCIUM 7.5 MG/DL (8.5-10.1); CREATININE 0.43 MG/DL (0.50-1.00)
[2017-09-19 08:11] LABS: BANDS 5 % (0-6); LYMPHOCYTES 4 % (9-44); MONOCYTES 3 % (0-8); MYELOCYTES 1 % (0-0); NEUTROPHIL # MANUAL DIFF 18.9 TH/MM3 (1.8-7.7); POLYS (SEG NEUTROPHILS) 87 % (16-70)
[2017-09-19] MEDS: SODIUM CHLORIDE 0.9% FLUSH 10 ML FLUSH IV FLUSH SCH ×2 (08:37→20:54)
[2017-09-19] MEDS: methylPREDNISolone SOD SUCC 40 MG/1 ML VIAL IV PUSH SCH (08:37)
[2017-09-19] MEDS: PANTOPRAZOLE SODIUM 40 MG VIAL IV PUSH SCH (08:38)
[2017-09-19] MEDS: METOPROLOL TARTRATE 25 MG TAB PEG SCH ×2 (08:38→20:54)
[2017-09-19] MEDS: SODIUM CHLOR 0.9% 1000 ML INJ 1,000 ML IV SCH ×2 (08:38→21:02)
[2017-09-19] MEDS: DOCUSATE SODIUM 50 MG/SENNA 8.6 MG TAB PO SCH ×2 (08:38→20:54)
[2017-09-19] MEDS: FLUTICASONE PROPIONATE 50 MCG/ACT 16 GM NASAL SPRAY EACH NARE SCH (08:39)
[2017-09-19] MEDS: BUDESONIDE-FORMOTEROL 160/4.5 MCG INHALER INH SCH ×2 (08:39→20:54)
[2017-09-19] MEDS: guaiFENesin SOLUTION 200 MG/10 ML CUP PEG PRN ×2 (09:01→20:53)
[2017-09-19] MEDS: ENOXAPARIN SODIUM 40 MG/0.4 ML SYRINGE SQ SCH (11:34)
[2017-09-19] MEDS: VANCOMYCIN 1,000 MG/NS 250 ML IV SCH ×4 (13:13→23:20)
--- NOTE | 2017-09-19 16:28 | HHI.PR ---
Subjective Remarks tolerating tube feedings but calims having loose stools d/w staff- - minimal stool, formed reviewed TF- changed back to [facility] patient not a diabetic good BS readings Objective Vitals Vital Signs Date Time Temp Pulse Resp B/P (MAP) Pulse Ox O2 Delivery O2 Flow Rate FiO2 09/19/17 14:00 89 09/19/17 12:00 86 09/19/17 12:00 98.3 86 26 130/71 (90) 99 09/19/17 10:00 86 09/19/17 08:21 100 Nasal Cannula 4.00 09/19/17 08:00 89 09/19/17 08:00 98.2 88 25 157/80 (105) 100 09/19/17 07:00 100 Nasal Cannula 4.00 60 09/19/17 06:00 84 09/19/17 04:00 98.7 88 17 127/69 (88) 92 09/19/17 04:00 88 09/19/17 03:41 98 Nasal Cannula 4.00 09/19/17 02:00 92 09/19/17 00:10 99 Nasal Cannula 4.00 09/19/17 00:00 90 09/19/17 00:00 99.0 90 20 116/65 (82) 100 09/18/17 22:00 83 09/18/17 20:35 94 Nasal Cannula 4.00 09/18/17 20:00 109 09/18/17 20:00 98.9 109 23 179/59 (99) 93 09/18/17 19:00 93 Nasal Cannula 4.00 09/18/17 16:26 Nasal Cannula 4.00 I/O 09/18/17 09/18/17 09/18/17 09/19/17 09/19/17 09/19/17 07:00 15:00 23:00 07:00 15:00 23:00 Intake Total 350 ml 83 ml 551 ml Output Total 500 ml 300.0 ml 500 ml Balance -150 ml -217.0 ml 51 ml Intake Oral 0 ml 0 ml IV Total 350 ml Tube Feeding 83 ml 551 ml Output Urine Total 500 ml 300 ml 500 ml Tube Feeding Residual Discard 0 ml # Bowel Movements 1 1 Result Diagram: 09/19/17 0500 09/19/17 0500 Imaging Last Impressions Chest X-Ray 09/18/17 06 Signed Impressions: CONCLUSION: No significant interval change with persistent bilateral lower lung zone pulmon jason parenchymal opacity and small right pleural effusion. Objective Remarks awake and alert, trachesotomy wound- - no sign sof infection- almost closed no rales regular rhythm abdomen- PEG in place extremiteis no edema A/P Problem List: (1) Acute and chronic respiratory failure with hypoxia ICD Code: J96.21 - Acute and chronic respiratory failure with hypoxia (2) Aspiration pneumonia ICD Code: J69.0 - Pneumonitis due to inhalation of food and vomit Status: Acute (3) Difficult airway for intubation ICD Code: T88.4XXA - Failed or difficult intubation, initial encounter Status: Chronic (4) Thrombocytosis ICD Code: D47.3 - Essential (hemorrhagic) thrombocythemia (5) Leukocytosis ICD Code: D72.829 - Elevated white blood cell count, unspecified (6) Migraine headache ICD Code: G43.909 - Migraine, unspecified, not intractable, without status migrainosus (7) Anemia of chronic disease ICD Code: D63.8 - Anemia in other chronic diseases classified elsewhere (8) Hypoalbuminemia ICD Code: E88.09 - Other disorders of plasma-protein metabolism, not elsewhere classified (9) S/P percutaneous endoscopic gastrostomy (PEG) tube placement ICD Code: Z93.1 - Gastrostomy status (10) Hypothyroidism ICD Code: E03.9 - Hypothyroidism, unspecified Status: Chronic (11) HTN (hypertension) ICD Code: I10 - Essential (primary) hypertension Status: Chronic (12) HLD (hyperlipidemia) ICD Code: E78.5 - Hyperlipidemia, unspecified Status: Chronic (13) Dysphagia ICD Code: R13.10 - Dysphagia, unspecified Status: Chronic (14) Adjustment disorder with anxiety ICD Code: F43.22 - Adjustment disorder with anxiety (15) Impaired mobility and activities of daily living ICD Code: Z74.09 - Other reduced mobility Status: Acute (16) Loculated pleural effusion ICD Code: J90 - Pleural effusion, not elsewhere classified Status: Resolved (17) Urinary retention ICD Code: R33.9 - Retention of urine, unspecified Assessment and Plan Neuro/Psych: Adjustment disorder Depression/anxiety Peripheral neuropathy Medications include gabapentin 100 mg at night, trazodone 100 mg at night and buspirone 5 mg every 8 hours Acetaminophen 650 mg by tube every 6 hours as needed fever Hydrocodone/acetaminophen 5/25 1 tablet every 4 hours as needed pain 1 through 5 Morphine sulfate 2 mg every 2 hours as needed CV: Essential hypertension Currently normal saline at 84 cc an hour Currently metoprolol tartrate 12.5 mg by mouth twice daily continue. Patient is on midodrine 5 mg 3 times daily? Resp: Acute on chronic respiratory failure Previously followed by Dr. Clayton Removal of percutaneous tracheostomy 09/23. on 4L NC 09/17 CT pulmonary angiogram revealed no evidence of pulmonary embolism. Increasing groundglass opacity and consolidating airspace disease throughout both lungs. Stable bilateral pleural effusions. Chest x-ray on 4 revealed right lower lobe infiltrate/effusion Currently on albuterol/ipratropium aerosols every 4 hours with albuterol aerosols every 2 hours as needed dyspnea Difficult airway. Patient is only able to open her mouth 2 cm. GI: Hypoalbuminemia Nausea/vomiting Tube feeding toletrating- but beth cnhange back to jevity 1.5 formula Famotidine 20 mg twice daily/prior medication currently hold. Currently on pantoprazole 40 mg IV daily Docusate sodium/senna 1 tablet twice daily for bowel regimen : History of bladder suspension 2 Urinary retention Patient was straight cathed on the floor. Endo: Chronic prednisone use Switch prednisone 20 mg twice daily to his methylprednisolone succinate 40 mg IV twice daily- per Pulmonary Sliding scale insulin with Novulog with Accu-Cheks every 6 hours to maintain euglycemia/low regimen Renal: Creatinine previously within normal limits Monitor urine output Accurate I's and O Heme: Leukocytosis Anemia of chronic disease Thrombocytosis likely reactive Monitor CBC daily and coags. Follow trends No indication for transfusion of blood products at this time ID: Aspiration pneumonia Pseudomonas aeruginosa pneumonia/sputum positive History of Acinobacter History of Pseudomonas empyema History of Sangeeta tropicalis cystitis Currently piperacillin/tazobactam and vancomycin Blood cultures 2, sputum and UA all ordered MSK: PT evaluate and treat FEN: Replace electrolytes as clinically indicated Access -Left upper extremity PICC triple lumen Prophylaxis -GI -pantoprazole -DVT -SCD/enoxaparin PT/OT consult Problem Qualifiers (1) Aspiration pneumonia: Qualified Codes: J69.0 - Pneumonitis due to inhalation of food and vomit (2) Leukocytosis: Qualified Codes: D72.829 - Elevated white blood cell count, unspecified (3) Migraine headache: Qualified Codes: G43.909 - Migraine, unspecified, not intractable, without status migrainosus (4) Hypothyroidism: Qualified Codes: E03.9 - Hypothyroidism, unspecified (5) HTN (hypertension): Qualified Codes: I10 - Essential (primary) hypertension (6) HLD (hyperlipidemia): Qualified Codes: E78.00 - Pure hypercholesterolemia, unspecified (7) Dysphagia: Qualified Codes: R13.10 - Dysphagia, unspecified Jeanne Cee MD Sep 19, 2017 16:28
[2017-09-19] MEDS: POTASSIUM CHLORIDE 20 MEQ PWD PACKET NG SCH (16:41)
[2017-09-19] MEDS: guaiFENesin/CODEINE SYRUP 200 MG/20 MG/10 ML CUP PO PRN (16:51)
--- NOTE | 2017-09-19 19:52 | HHI.PR ---
Subjective Remarks Better today. On N/C at 3 L. On tube feeds .On antibiotics per ID Objective Vital Signs Date Time Temp Pulse Resp B/P (MAP) Pulse Ox O2 Delivery O2 Flow Rate FiO2 09/19/17 18:00 93 09/19/17 16:00 98.3 82 21 140/70 (93) 100 09/19/17 16:00 86 09/19/17 14:00 89 09/19/17 12:00 86 09/19/17 12:00 98.3 86 26 130/71 (90) 99 09/19/17 10:00 86 09/19/17 08:21 100 Nasal Cannula 4.00 09/19/17 08:00 89 09/19/17 08:00 98.2 88 25 157/80 (105) 100 09/19/17 07:00 100 Nasal Cannula 4.00 60 09/19/17 06:00 84 09/19/17 04:00 98.7 88 17 127/69 (88) 92 09/19/17 04:00 88 09/19/17 03:41 98 Nasal Cannula 4.00 09/19/17 02:00 92 09/19/17 00:10 99 Nasal Cannula 4.00 09/19/17 00:00 90 09/19/17 00:00 99.0 90 20 116/65 (82) 100 09/18/17 22:00 83 09/18/17 20:35 94 Nasal Cannula 4.00 09/18/17 20:00 109 09/18/17 20:00 98.9 109 23 179/59 (99) 93 I/O 09/18/17 09/18/17 09/18/17 09/19/17 09/19/17 09/19/17 07:00 15:00 23:00 07:00 15:00 23:00 Intake Total 350 ml 83 ml 551 ml 350 ml 573 ml Output Total 500 ml 300.0 ml 500 ml 1150 ml Balance -150 ml -217.0 ml 51 ml 350 ml -577 ml Intake Oral 0 ml 0 ml IV Total 350 ml 350 ml Tube Feeding 83 ml 551 ml 553 ml Tube Irrigant 20 ml Output Urine Total 500 ml 300 ml 500 ml 1150 ml Tube Feeding Residual Discard 0 ml # Bowel Movements 1 1 Result Diagram: 09/19/17 0500 09/19/17 0500 Objective Remarks GENERAL: This is a thinly built, elderly lady was pale and not dyspneic at rest.. HEENT: Head is normocephalic. Pupils are reactive. Tongue is dry. Throat is injected. NECK: Supple. No bruits. No venous distention. Trach site is closed and healing. CHEST: Reveals occ wheezes throughout both lung benito, prolonged expirations with basilar crackles. HEART: Sounds are regular, S1 and S2. No murmur. ABDOMEN: Soft, scaphoid. No mass. No organomegaly. EXTREMITIES: No lesions. Decreased pulses. NEUROLOGIC: Reflexes are 1+ with no gross motor deficits. SKIN: Dry and cool. Assessment and Plan Assessment and Plan IMPRESSION: 1. Aspiration pneumonia with hypoxemia. 2. History of tracheostomy tube placement and removal. 3. History of laryngeal cancer status post resection and radiation 4. Chronic dysphagia. Plan: 1. Continue antibiotics.Per ID 2. Wean O2 to 3 L.Keep sat >92 3. Nebs qid , duoneb. 4. CBC BMP 5. D/C Solumedrol 6. Transfer to [facility] Lizbet Clayton MD Sep 19, 2017 19:52
[2017-09-19] MEDS: predniSONE 10 MG TAB PO SCH (20:53)
[2017-09-19] MEDS: traZODone HCL 100 MG TAB PEG SCH (20:53)
[2017-09-19] MEDS: ACETAMINOPHEN/HYDROcodone 325 MG/5 MG TAB PO PRN (20:54)
[2017-09-19] MEDS: GABAPENTIN 250 MG/5 ML UDC PEG SCH (20:54)
[2017-09-20] VITALS (9 sets, daily range): BP systolic 95–146; BP diastolic 54–79; PULSE 79–85; RESP 16–26; TEMP 98.1–98.4; O2SAT 95–100
[2017-09-20] MEDS: RESP: ALBUTEROL 2.5 MG/IPRATROPIUM 0.5 MG NEB (SCH) INH ×4 (03:35→15:33)
[2017-09-20] MEDS: PIPERACIL-TAZO 4.5 GM PREMIX 100 ML IV SCH ×2 (04:00→10:00)
[2017-09-20] MEDS: CHLORHEXIDINE GLUCONATE 2 % 1 PACK (2 CLOTHS) TOP SCH (04:00)
[2017-09-20] MEDS: guaiFENesin SOLUTION 200 MG/10 ML CUP PEG PRN (04:12)
[2017-09-20] MEDS: INSULIN ASPART SUPPLEMENTAL SCALE SQ SCH ×2 (05:28→11:31)
[2017-09-20] MEDS: LEVOTHYROXINE SODIUM 100 MCG TAB PEG SCH (05:28)
[2017-09-20] MEDS: MIDODRINE 5 MG TAB PO SCH ×2 (05:29→11:31)
[2017-09-20 06:42] LABS: BICARBONATE 31.6 MEQ/L (21.0-32.0); CALCIUM 8.9 MG/DL (8.5-10.1); CREATININE 0.49 MG/DL (0.50-1.00)
[2017-09-20] MEDS: SODIUM CHLOR 0.9% 1000 ML INJ 1,000 ML IV SCH (08:27)
[2017-09-20] MEDS: MORPHINE SULFATE 4 MG/ML INJ IV PUSH PRN (08:33)
[2017-09-20] MEDS: PANTOPRAZOLE SODIUM 40 MG VIAL IV PUSH SCH (08:34)
[2017-09-20] MEDS: SODIUM CHLORIDE 0.9% FLUSH 10 ML FLUSH IV FLUSH SCH (08:34)
[2017-09-20] MEDS: POTASSIUM CHLORIDE 20 MEQ PWD PACKET NG SCH (08:34)
[2017-09-20] MEDS: DOCUSATE SODIUM 50 MG/SENNA 8.6 MG TAB PO SCH (08:35)
[2017-09-20] MEDS: predniSONE 10 MG TAB PO SCH (08:35)
[2017-09-20] MEDS: METOPROLOL TARTRATE 25 MG TAB PEG SCH (08:35)
[2017-09-20] MEDS: guaiFENesin/CODEINE SYRUP 200 MG/20 MG/10 ML CUP PO PRN ×2 (08:44→14:34)
[2017-09-20] MEDS: BUDESONIDE-FORMOTEROL 160/4.5 MCG INHALER INH SCH (09:33)
[2017-09-20] MEDS: FLUTICASONE PROPIONATE 50 MCG/ACT 16 GM NASAL SPRAY EACH NARE SCH (09:33)
[2017-09-20] MEDS: ENOXAPARIN SODIUM 40 MG/0.4 ML SYRINGE SQ SCH (10:00)
[2017-09-20] MEDS: VANCOMYCIN 1,000 MG/NS 250 ML IV SCH ×2 (11:31)
--- NOTE | 2017-09-20 13:42 | HHI.PR ---
Subjective Remarks patient up on chair "ready to go to [facility]" tolerating tube feeding Objective Vitals Vital Signs Date Time Temp Pulse Resp B/P (MAP) Pulse Ox O2 Delivery O2 Flow Rate FiO2 09/20/17 12:00 81 09/20/17 12:00 98.4 83 19 95/54 (68) 95 09/20/17 10:00 79 09/20/17 08:38 17 09/20/17 08:01 98 Nasal Cannula 3.00 09/20/17 08:00 98.1 82 26 146/70 (95) 99 09/20/17 08:00 85 09/20/17 07:00 100 Nasal Cannula 3.00 60 09/20/17 06:00 82 16 141/79 (99) 100 09/20/17 06:00 82 09/20/17 04:00 84 09/20/17 03:36 97 Nasal Cannula 3.00 09/20/17 02:00 82 09/20/17 00:00 83 09/20/17 00:00 98.4 83 18 138/73 (94) 99 09/19/17 23:23 99 Nasal Cannula 3.00 09/19/17 22:00 84 09/19/17 20:19 99 Nasal Cannula 3.00 09/19/17 20:00 98.3 81 33 143/66 (91) 100 09/19/17 20:00 81 09/19/17 19:00 100 Nasal Cannula 4.00 60 09/19/17 18:00 93 09/19/17 16:00 98.3 82 21 140/70 (93) 100 09/19/17 16:00 86 09/19/17 14:00 89 I/O 09/19/17 09/19/17 09/19/17 09/20/17 09/20/17 09/20/17 07:00 15:00 23:00 07:00 15:00 23:00 Intake Total 551 ml 350 ml 573 ml 311 ml Output Total 500 ml 1150.0 ml 1000 ml Balance 51 ml 350 ml -577.0 ml -689 ml Intake Oral 0 ml IV Total 350 ml Tube Feeding 551 ml 553 ml 311 ml Tube Irrigant 20 ml Output Urine Total 500 ml 1150 ml 1000 ml Tube Feeding Residual Discard 0 ml # Bowel Movements 1 2 Result Diagram: 09/19/17 0500 09/20/17 06 Imaging Last Impressions Chest X-Ray 09/18/17 06 Signed Impressions: CONCLUSION: No significant interval change with persistent bilateral lower lung zone pulmon jason parenchymal opacity and small right pleural effusion. Objective Remarks awake and alert, trachesotomy wound- - no sign sof infection- almost closed no rales regular rhythm abdomen- PEG in place extremiteis no edema A/P Problem List: (1) Acute and chronic respiratory failure with hypoxia ICD Code: J96.21 - Acute and chronic respiratory failure with hypoxia (2) Aspiration pneumonia ICD Code: J69.0 - Pneumonitis due to inhalation of food and vomit Status: Acute (3) Difficult airway for intubation ICD Code: T88.4XXA - Failed or difficult intubation, initial encounter Status: Chronic (4) Thrombocytosis ICD Code: D47.3 - Essential (hemorrhagic) thrombocythemia (5) Leukocytosis ICD Code: D72.829 - Elevated white blood cell count, unspecified (6) Migraine headache ICD Code: G43.909 - Migraine, unspecified, not intractable, without status migrainosus (7) Anemia of chronic disease ICD Code: D63.8 - Anemia in other chronic diseases classified elsewhere (8) Hypoalbuminemia ICD Code: E88.09 - Other disorders of plasma-protein metabolism, not elsewhere classified (9) S/P percutaneous endoscopic gastrostomy (PEG) tube placement ICD Code: Z93.1 - Gastrostomy status (10) Hypothyroidism ICD Code: E03.9 - Hypothyroidism, unspecified Status: Chronic (11) HTN (hypertension) ICD Code: I10 - Essential (primary) hypertension Status: Chronic (12) HLD (hyperlipidemia) ICD Code: E78.5 - Hyperlipidemia, unspecified Status: Chronic (13) Dysphagia ICD Code: R13.10 - Dysphagia, unspecified Status: Chronic (14) Adjustment disorder with anxiety ICD Code: F43.22 - Adjustment disorder with anxiety (15) Impaired mobility and activities of daily living ICD Code: Z74.09 - Other reduced mobility Status: Acute (16) Loculated pleural effusion ICD Code: J90 - Pleural effusion, not elsewhere classified Status: Resolved (17) Urinary retention ICD Code: R33.9 - Retention of urine, unspecified Assessment and Plan Neuro/Psych: Adjustment disorder Depression/anxiety Peripheral neuropathy Medications include gabapentin 100 mg at night, trazodone 100 mg at night and buspirone 5 mg every 8 hours Acetaminophen 650 mg by tube every 6 hours as needed fever Hydrocodone/acetaminophen 5/25 1 tablet every 4 hours as needed pain 1 through 5 Morphine sulfate 2 mg every 2 hours as needed CV: Essential hypertension Currently normal saline at 84 cc an hour Currently metoprolol tartrate 12.5 mg by mouth twice daily continue. Patient is on midodrine 5 mg 3 times daily? Resp: Acute on chronic respiratory failure Previously followed by Dr. Calyton Removal of percutaneous tracheostomy 09/23. on 4L NC 09/17 CT pulmonary angiogram revealed no evidence of pulmonary embolism. Increasing groundglass opacity and consolidating airspace disease throughout both lungs. Stable bilateral pleural effusions. Chest x-ray on 4 revealed right lower lobe infiltrate/effusion Currently on albuterol/ipratropium aerosols every 4 hours with albuterol aerosols every 2 hours as needed dyspnea on Prednisone 10 mg po bid GI: Hypoalbuminemia Nausea/vomiting Tube feeding toletrating- jevity 1.5 formula Famotidine 20 mg twice daily/prior medication Docusate sodium/senna 1 tablet twice daily for bowel regimen : History of bladder suspension 2 Urinary retention Patient was straight cathed on the floor. Endo: Chronic prednisone use Prednisone 10 mg po bid- chronic use Renal: Creatinine previously within normal limits Monitor urine output Accurate I's and O Heme: Leukocytosis Anemia of chronic disease Thrombocytosis likely reactive Monitor CBC daily and coags. Follow trends No indication for transfusion of blood products at this time ID: Aspiration pneumonia Pseudomonas aeruginosa pneumonia/sputum positive History of Acinobacter History of Pseudomonas empyema History of Sangeeta tropicalis cystitis DC all anitibotics MSK: PT evaluate and treat FEN: Replace electrolytes as clinically indicated Access -Left upper extremity PICC triple lumen Prophylaxis -GI -pantoprazole -DVT -SCD/enoxaparin PT/OT consult DC to [facility] Problem Qualifiers (1) Aspiration pneumonia: Qualified Codes: J69.0 - Pneumonitis due to inhalation of food and vomit (2) Leukocytosis: Qualified Codes: D72.829 - Elevated white blood cell count, unspecified (3) Migraine headache: Qualified Codes: G43.909 - Migraine, unspecified, not intractable, without status migrainosus (4) Hypothyroidism: Qualified Codes: E03.9 - Hypothyroidism, unspecified (5) HTN (hypertension): Qualified Codes: I10 - Essential (primary) hypertension (6) HLD (hyperlipidemia): Qualified Codes: E78.00 - Pure hypercholesterolemia, unspecified (7) Dysphagia: Qualified Codes: R13.10 - Dysphagia, unspecified Jeanne Cee MD Sep 20, 2017 13:42
[2017-09-20] MEDS ORDERED: PRED10 PO (13:46)
[2017-09-20] MEDS ORDERED: Albuterol-Ipratropium Neb INH (13:46)
--- NOTE | 2017-09-20 13:48 | HHI.DS ---
Discharge Summary Admission Date Sep 17, 2017 at 09:06 Discharge Date: Sep 20, 2017 Admitting Diagnosis Acute respiratory failure likely secondary to aspiration (1) Acute and chronic respiratory failure with hypoxia ICD Code: J96.21 - Acute and chronic respiratory failure with hypoxia Diagnosis: Principal (2) Aspiration pneumonia ICD Code: J69.0 - Pneumonitis due to inhalation of food and vomit Diagnosis: Principal Status: Acute (3) Difficult airway for intubation ICD Code: T88.4XXA - Failed or difficult intubation, initial encounter Diagnosis: Principal Status: Chronic (4) Thrombocytosis ICD Code: D47.3 - Essential (hemorrhagic) thrombocythemia Diagnosis: Secondary (5) Leukocytosis ICD Code: D72.829 - Elevated white blood cell count, unspecified Diagnosis: Secondary (6) Migraine headache ICD Code: G43.909 - Migraine, unspecified, not intractable, without status migrainosus Diagnosis: Secondary (7) Anemia of chronic disease ICD Code: D63.8 - Anemia in other chronic diseases classified elsewhere Diagnosis: Secondary (8) Hypoalbuminemia ICD Code: E88.09 - Other disorders of plasma-protein metabolism, not elsewhere classified Diagnosis: Secondary (9) S/P percutaneous endoscopic gastrostomy (PEG) tube placement ICD Code: Z93.1 - Gastrostomy status Diagnosis: Secondary (10) Hypothyroidism ICD Code: E03.9 - Hypothyroidism, unspecified Diagnosis: Secondary Status: Chronic (11) HTN (hypertension) ICD Code: I10 - Essential (primary) hypertension Diagnosis: Secondary Status: Chronic (12) HLD (hyperlipidemia) ICD Code: E78.5 - Hyperlipidemia, unspecified Diagnosis: Secondary Status: Chronic (13) Dysphagia ICD Code: R13.10 - Dysphagia, unspecified Diagnosis: Principal Status: Chronic (14) Adjustment disorder with anxiety ICD Code: F43.22 - Adjustment disorder with anxiety Diagnosis: Secondary (15) Impaired mobility and activities of daily living ICD Code: Z74.09 - Other reduced mobility Diagnosis: Secondary Status: Acute (16) Loculated pleural effusion ICD Code: J90 - Pleural effusion, not elsewhere classified Diagnosis: Secondary Status: Resolved (17) Urinary retention ICD Code: R33.9 - Retention of urine, unspecified Diagnosis: Principal Brief History - From Admission This is a 72-year-old female. Date of admission 09/17/2017. Past medical history includes laryngeal cancer status post radical neck dissection radiation therapy, essential hypertension, hyperlipidemia, hypothyroidism, depression/chronic dysphagia status post PEG tube placement and chronic respiratory failure status post tracheostomy. He was originally admitted to [facility] 07/24 with dysphasia. Due to workup she was noted to have a right-sided loculated pleural effusion. This was exudative and grew out Pseudomonas Aeruginosa.. Chest tubes were placed as the patient was thought to be too high risk due to high risk airway. She developed acute hypoxemic respiratory failure on July 23, 1999 he was intubated. Chest tubes removed August 12, 2017. She was trached and pegged. Further infectious etiology included stenotrophomonas August 15, 2017 treated with sulfamethoxazole/trimethoprim and Pseudomonas in sputum treated with cefepime. Tracheostomy was downsized to a # 6 Shiley on September 05, 2017. Patient was transferred to [facility] where she was on room air with capped trach. Will evaluate pulmonology tracheostomy was removed early September 2017 Today, patient an episode of aspiration and desaturated. She is placed on 100% nonrebreather mask and transferred to [facility]. She had imaging which amount to locate in her medical record. She is currently on high flow nasal cannula with a repeat ABG pending. Chest x-ray revealed right lower lobe infiltrate/ effusion. All laboratories currently pending. Her airways approximately 2 cm once open. CBC/BMP: 09/19/17 0500 09/20/17 0600 Significant Findings Laboratory Tests Test 09/17/17 14:15 09/17/17 17:30 09/18/17 06:00 09/18/17 06:02 Blood Gas HCO3 37 mmol/L (22-26) Blood Gas Base Excess 13.0 mmol/L (-2-2) Arterial Blood pH 7.49 (7.380-7.420) Arterial Blood Partial Pressure CO2 50 mmHg (38-42) Blood Gas Hemoglobin 10.7 G/DL (12.0-16.0) White Blood Count 19.5 TH/MM3 (4.0-11.0) 20.1 TH/MM3 (4.0-11.0) Red Blood Count 2.52 MIL/MM3 (4.00-5.30) 2.86 MIL/MM3 (4.00-5.30) Hemoglobin 7.7 GM/DL (11.6-15.3) 8.5 GM/DL (11.6-15.3) Hematocrit 22.7 % (35.0-46.0) 25.8 % (35.0-46.0) Platelet Count 485 TH/MM3 (150-450) 501 TH/MM3 (150-450) Mean Platelet Volume 6.1 FL (7.0-11.0) 6.1 FL (7.0-11.0) Prothrombin Time 12.1 SEC (9.8-11.6) Activated Partial Thromboplast Time 30.8 SEC (24.3-30.1) Blood Urea Nitrogen 21 MG/DL (7-18) Creatinine 0.49 MG/DL (0.50-1.00) Albumin 2.4 GM/DL (3.4-5.0) Aspartate Amino Transf (AST/SGOT) 12 U/L (15-37) Sodium Level 135 MEQ/L (136-145) Chloride Level 93 MEQ/L (98-107) Carbon Dioxide Level 32.9 MEQ/L (21.0-32.0) Neutrophils (%) (Auto) 95.4 % (16.0-70.0) Lymphocytes (%) (Auto) 3.2 % (9.0-44.0) Neutrophils # (Auto) 19.1 TH/MM3 (1.8-7.7) Lymphocytes # (Auto) 0.6 TH/MM3 (1.0-4.8) Test 09/18/17 06:05 09/18/17 23:45 09/19/17 05:00 09/20/17 06:00 Vancomycin Level Trough 14.7 MCG/ML (5.0-10.0) White Blood Count 20.3 TH/MM3 (4.0-11.0) Red Blood Count 2.49 MIL/MM3 (4.00-5.30) Hemoglobin 7.9 GM/DL (11.6-15.3) Hematocrit 22.1 % (35.0-46.0) Platelet Count 515 TH/MM3 (150-450) Mean Platelet Volume 5.9 FL (7.0-11.0) Neutrophils (%) (Auto) 95.0 % (16.0-70.0) Lymphocytes (%) (Auto) 2.9 % (9.0-44.0) Neutrophils # (Auto) 19.3 TH/MM3 (1.8-7.7) Lymphocytes # (Auto) 0.6 TH/MM3 (1.0-4.8) Neutrophils % (Manual) 87 % (16-70) Lymphocytes % 4 % (9-44) Neutrophils # (Manual) 18.9 TH/MM3 (1.8-7.7) Myelocytes 1 % (0-0) Platelet Estimate HIGH (NORMAL) Blood Urea Nitrogen 22 MG/DL (7-18) 19 MG/DL (7-18) Creatinine 0.43 MG/DL (0.50-1.00) 0.49 MG/DL (0.50-1.00) Random Glucose 109 MG/DL (74-106) 112 MG/DL (74-106) Calcium Level 7.5 MG/DL (8.5-10.1) Potassium Level 3.2 MEQ/L (3.5-5.1) Sodium Level 134 MEQ/L (136-145) Chloride Level 93 MEQ/L (98-107) PE at Discharge awake and alert, trachesotomy wound- - no sign sof infection- almost closed no rales regular rhythm abdomen- PEG in place extremiteis no edema Pt update on day of discharge awake and alert tolerating tube feedings- very looking forward to going back to [facility] Pt Condition on Discharge: Stable Discharge Disposition: Rehab Inpatient Discharge Time: > 30 minutes Discharge Instructions DIET: Follow Instructions for: On Tube Feeding Activities you can perform: Weight Bearing as Calos Other Activity Instructions: PT daily Follow up Referrals: Pulmonology - 2-3 Days with JAIME New Medications: Prednisone (Prednisone) 10 Mg Tab 10 MG PO BID for chronic use COPD for 30 Days, #60 TAB [Albuterol-Ipratropium Neb] () 1 AMPULE NEBU 1 AMPULE INH Q4HR NEB for CPOPD Continued Medications: Enoxaparin Inj (Enoxaparin Inj) 40 Mg/0.4 Ml Syr 40 MG SQ DAILY for Blood Clot Prevention, SYRINGE 0 Refills Famotidine Liq (Famotidine Liq) 40 Mg/5 Ml Susp 20 MG PEG BID for Manage Heartburn, #50 ML 0 Refills Fluticasone Nasal [place] (Fluticasone Nasal [place]) 50 Mcg/Act Naspr 100 MCG EACH NARE DAILY for Allergy Management, #1 BOTTLE 0 Refills 50 mcg/spray Gabapentin Liq (Gabapentin Liq) 250 Mg/5 Ml Soln 100 MG PEG HS for Pain Management, #450 ML 0 Refills Levothyroxine (Levothyroxine) 100 Mcg Tab 100 MCG PEG DAILY for Thyroid, #30 TAB 0 Refills Metoprolol Tartrate (Metoprolol Tartrate) 25 Mg Tab 12.5 MG PEG BID for Blood Pressure Management for 30 Days, TAB Midodrine (Midodrine) 5 Mg Tab 5 MG PO TID@07,12,17 for 1 Day, #3 TAB Tiotropium Inh (Spiriva Handihaler) 18 Mcg Cap 18 MCG INH DAILY for 1 Day, CAP 1 capsule = 18 mcg Trazodone (Trazodone) 50 Mg Tab 100 MG PEG HS for Depression Control for 30 Days, TAB [Budeson-Formot 160-4.5 Mcg Inh] () 60 PUFF AERO 2 PUFF INH Q12HR for 1 Day [Chlorhexidine 0.12% Liq] () 15 ML SOLN 15 ML SWISH-SPIT BID for 1 Day Discontinued Medications: Buspirone (Buspirone) 5 Mg Tab 5 MG PEG Q8HR for Anxiety, TAB 0 Refills Jeanne Cee MD Sep 20, 2017 13:48
[2017-09-21] MEDS ORDERED: PHARMACY ORDERED LAB ONE (11:45)
== END 2017-09-20 16:28 | DRG 177 ==
LOC: N03A 09:06
PROVIDERS: ADMIT Internal Medicine; ATTEND Internal Medicine
DX: J69.0 Pneumonitis due to inhalation of food and vomit (principal); J96.21 Acute and chronic respiratory failure with hypoxia; J90 Pleural effusion, not elsewhere classified; Z93.0 Tracheostomy status; E88.09 Other disorders of plasma-protein metabolism, not elsewhere classified; R13.10 Dysphagia, unspecified; G62.9 Polyneuropathy, unspecified; D63.8 Anemia in other chronic diseases classified elsewhere; J15.1 Pneumonia due to Pseudomonas; R26.9 Unspecified abnormalities of gait and mobility; R33.9 Retention of urine, unspecified; D47.3 Essential (hemorrhagic) thrombocythemia; E03.9 Hypothyroidism, unspecified; E78.5 Hyperlipidemia, unspecified; F41.8 Other specified anxiety disorders; F43.22 Adjustment disorder with anxiety; G43.909 Migraine, unspecified, not intractable, without status migrainosus; I10 Essential (primary) hypertension; R63.4 Abnormal weight loss; K21.9 Gastro-esophageal reflux disease without esophagitis; R47.02 Dysphasia; T88.4XXA Failed or difficult intubation, initial encounter; Z79.52 Long term (current) use of systemic steroids; Z85.21 Personal history of malignant neoplasm of larynx; Z93.1 Gastrostomy status; Z92.3 Personal history of irradiation; Z68.20 Body mass index [BMI] 20.0-20.9, adult; Z88.1 Allergy status to other antibiotic agents
CPT/HCPCS: 36600; 71045; 80048; 80053; 80061; 80076; 80202; 82150; 82533; 82550; 82805; 82948; 83036; 83605; 83615; 83690; 83735; 84100; 84443; 84484; 84550; 85007; 85025; 85027; 85384; 85610; 85730; 86403; 87040; 87077; 87186; 87205; 87641; 93005; 94150; 94640; 94664; 94667; 94668; C9113; J1642; J1650; J2270; J2543; J2920; J3370; J7030; J7040; J7050; J7512; P9045; Q9967

== ENCOUNTER 2017-09-21 07:44 | Inpatient (IN) | payer MEDICARE, OTHER ==
[2017-09-21] VITALS (8 sets, daily range): BP systolic 84; BP diastolic 50; PULSE 133; O2SAT 0–92
[~2017-09-21] VITALS: Ht 160 cm; Wt 58.0 kg
[~2017-09-21 07:44] MED LIST changes: +Albuterol-Ipratropium Neb INH; -BUSP5TAB PEG; -CEFE2INJ2 IV; +PRED10 PO; -ZOSY3.375P IV
[2017-09-21] MEDS ORDERED: CALCIUM CHLORIDE 10% SOLN 1 GRAM/10 ML SYR ONE (09:27)
--- NOTE | 2017-09-21 09:52 | HHI.HP ---
[facility] Service Critical Care Medicine Primary Care Physician Leon Osorio M.D. Admission Diagnosis Acute hypoxic respiratory failure Acute aspiration pneumonitis Diagnosis: Chief Complaint: respiratory distress Travel History International Travel<30 Days: No Contact w/Intl Traveler <30 Da: No Traveled to Known Affected Are: No History of Present Illness This is a 72-year-old female who has a history of head neck cancer and status post radical neck dissection and subsequent radiation therapy whose medical course was complicated by persistent respiratory failure requiring LTAC level care, subsequently from mechanical ventilation and sent to inpatient rehab. On 09/17 she was rapid response for acute hypoxemia and a likely aspiration event after being decannulated. At that time she was clinically stable and [facility] This morning rapid response was called for acute hypoxemia. I discussed the case with the rehab physician and emergently transported the patient down to the ICU where I met the patient. On arrival to the ICU, she was in extremis, in respiratory failure. Bag mask ventilation was instituted. It was noted at this time that I was able to easily mask ventilate the patient. Despite these of ventilation, the best oxygen saturation we can get on 100% Ambu bag was 86%. Immediately contacted my colleague Dr. Painter for airway backup. The patient had a clinical exam concerning for difficult airway, including a fixed anterior neck tissues with minimal movement, evidence of prior tracheostomy, minimal neck flexion and extension, nearly fixed jaw with less than 2 fingerbreadths mouth opening. However, given the degree of acute hypoxemia and respiratory failure, decision was made to move forward with emergent intubation. The patient was given 5 mg of Versed IV, but the patient' s rigid jaw would not allow for laryngoscopy. Given that we were successfully able to ventilate the patient easily, we proceeded then with rocuronium 100 mg IV. Despite neuromuscular blockade, her jaw mobility did not improve. Our first attempt at laryngoscopy was made with a GlideScope video laryngoscope, but I was unable to insert the GlideScope into the mouth to the poor mouth opening. On second laryngoscopy attempt, I used a Davis #2 with a retromolar approach was able to visualize the epiglottis. However, attempts at placing a gum elastic bougie anteriorly to the epiglottis were unsuccessful given the fixed nature of the tissues in the anterior neck. At this point laryngoscopy was aborted and mask ventilation was instituted again. The patient remains an easy mask at this time. On third laryngoscopy attempt, I was able to successfully place a glide scope into the mouth and again visualized the epiglottis with a grade 3 view. With the GlideScope, it should be noted that there is a significant amount of what appears to be tube feeds in the hypopharynx and these were aggressively suctioned. ET tube placement was difficult at this time, but the patient was worsening the hypoxemic. I placed the ET tube which did not have successful colorimetric CO2 detection, and esophageal intubation was immediately recognized, the ET tube was removed, and bag mask ventilation was again commenced. At this point, her saturations fell to 80%, and we could not improve her oxygen saturations. Dr. Painter and I made the decision at this time to pursue surgical airway, as we had failed multiple supraglottic airway attempts, in a patient with worsening hypoxic respiratory failure. Please see Dr. Borges's note for additional information. Upon first attempt at surgical airway, significant amount of bleeding was encountered which fell into the airway and prevented us from successfully ventilating the patient. Patient became bradycardic and went into PEA arrest, which point ACLS was instituted. During ACLS, I emergently attempted intubation and additional time with a GlideScope and a gum elastic bougie, which was successful and the ET tube was visualized going through the cords. At this point ROSC was obtained. There is a significant amount of blood in the airway which prevented us from successfully ventilating the patient. This was aggressively suctioned. At this time, Dr. Painter opened the prior tracheostomy incision and was able to place an 8.0 Shiley cuffed tracheostomy tube in the airway immediately distal to the endotracheal tube. This was confirmed with bronchoscopic evaluation of the tracheostomy tube to be in the lumen of the trachea. Therapeutic bronchoscopy was then performed to attempt to suction out the large volume of blood that was in the airway. At this point the patient was acutely hypotensive and tachycardic and likely hemorrhagic shock from blood loss. I emergently placed a 8.5 [place] Cordis introducer sheath as well as femoral arterial line for resuscitation. 4 units PRBC and 4 units FFP of uncrossed matched trauma blood was issued and emergently transfused. Patient was started on norepinephrine. Once more hemodynamically stable, we transported the patient emergently to CAT scan for CT chest abdomen and pelvis which demonstrated what appears to be innominate artery injury with pseudoaneurysm formation, mediastinal air. We were never able to successfully ventilate the patient, and the patient's pH remained approximately 6.7 with a PCO2 greater than 170. I long discussion with the family, and particularly the and daughter, where I relayed the emergent nature of the events and the likely vascular injury as well as the cardiac arrest secondary to hypoxia and the inability to secure the airway. The family expressed wishes to continue with aggressive measures, but make the patient DNR, as additional CPR has the high risk of dislodging the tracheostomy tube or causing worsening hemorrhage from the innominate artery injury. Despite our best efforts, the patient continued to decline both hemodynamically and respiratorily, and the patient . Review of Systems ROS Limitations: Clinical Condition, Altered Mental Status, Unresponsive Past Family Social History Allergies: Coded Allergies: ciprofloxacin (Unverified Adverse Reaction, Unknown, 09/11/17) Develops thrush Past Medical History Laryngeal cancer status post radical neck dissection/radiation therapy Migraine headache Adjustment disorder Anemia of chronic disease Essential hypertension Hyperlipidemia Chronic dysphasia Urinary retention Chronic prednisone use Loculated right pleural effusion/Pseudomonas gastroesophageal reflux disease Past Surgical History PEG tube placement Bladder suspension 2 Percutaneous tracheostomy Reported Medications Midrin 5 mg p.o. 3 x daily Tiotropium 18 mcg inhalation daily Gabapentin 100 mg by mouth daily Trazodone 100 mg by mouth at night Buspirone 5 mg by mouth 3 times daily Famotidine 20 mg by tube twice daily Prednisone 20 mg by tube twice daily Budesonide/formoterol 160/4.5 2 puffs twice daily Levothyroxine 100 mcg by mouth daily Metoprolol tartrate 12.5 mg by mouth twice daily Piperacillin/tazobactam 3.375 g IV every 8 hours Active Ordered Medications See MAR Family History Mother with lung cancer Social History No tobacco, alcohol or illicit drug use Physical Exam Vital Signs Vital Signs Date Time Temp Pulse Resp B/P (MAP) Pulse Ox O2 Delivery O2 Flow Rate FiO2 09/21/17 09:26 68 100 09/21/17 08:15 92 15.00 100 09/21/17 07:56 89 15.00 Physical Exam GENERAL: Elderly female in extremis, hypoxic and cyanotic, obtunded, being bag mask ventilated HEENT: Normocephalic. Atraumatic. Pupils equal, round, reactive, conjugate. Mucous membranes are moist. Mouth opening less than 2 cm with nearly fixed jaw. Large incisors prevent even a single fingerbreadth from entering the mouth. NECK: There is evidence of the tracheostomy which is only partially healed and still has midline sutures in it. The neck is rigid and firm without mobility with evidence of prior neck exploration. Trachea does appear to be midline. Minimal ability to flex and extend neck. CHEST: Agonal respirations. Active bag mask in progress. SPO2 86% on 100%. CARDIOVASCULAR: Tachycardic rate, regular rhythm. Sinus. ABDOMEN: Soft, very distended. Hypertympanic to percussion. Greater than 400 cc of tube feeds in the stomach when the PEG tube is placed to suction. No guarding. MUSCULOSKELETAL: Pulses 2+. No peripheral edema. NEUROLOGICAL: RASS -5. Obtunded. Unarousable. Laboratory Laboratory Tests Test 09/21/17 08:46 09/21/17 09:45 Blood Gas Puncture Site JOVANNY Blood Gas Patient Temperature 98.6 Blood Gas HCO3 21 Blood Gas Base Excess -10.8 Blood Gas Oxygen Saturation 33 Arterial Blood pH 6.89 Arterial Blood Partial Pressure CO2 118 Arterial Blood Partial Pressure O2 36 Arterial Blood Oxygen Content 2.2 Arterial Blood Carboxyhemoglobin 0.6 Arterial Blood Methemoglobin 1.4 Blood Gas Hemoglobin 4.5 Oxygen Delivery Device VENTILATOR Blood Gas Ventilator Setting SEE COMMENTS Blood Gas Inspired Oxygen 100 Caprini VTE Risk Assessment Caprini VTE Risk Assessment: Mod/High Risk (score >= 2) Caprini Risk Assessment Model Point Value = 1 Point Value = 2 Point Value = 3 Point Value = 5 Age 41-60 Minor surgery BMI > 25 kg/m2 Swollen legs Varicose veins or History of unexplained or recurrent spontaneous Oral contraceptives or hormone replacement Sepsis (< 1 month) Serious lung disease, including pneumonia (< 1 month) Abnormal pulmonary function Acute myocardial infarction Congestive heart failure (< 1 month) History of inflammatory bowel disease Medical patient at bed rest Age 61-74 Arthroscopic surgery Major open surgery (> 45 min) Laparoscopic surgery (> 45 min) Malignancy Confined to bed (> 72 hours) Immobilizing plaster cast Central venous access Age >= 75 History of VTE Family history of VTE Factor V Leiden Prothrombin [id number] Lupus anticoagulant Anticardiolipin antibodies Elevated serum homocysteine Heparin-induced thrombocytopenia Other congenital or acquired thrombophilia Stroke (< 1 month) Elective arthroplasty Hip, pelvis, or leg fracture Acute spinal cord injury (< 1 month) Prophylaxis Regimen Total Risk Factor Score Risk Level Prophylaxis Regimen 0-1 Low Early ambulation 2 Moderate Order ONE of the following: *Sequential Compression Device (SCD) *Heparin 5000 units SQ BID 3-4 Higher Order ONE of the following medications: *Heparin 5000 units SQ TID *Enoxaparin/Lovenox 40 mg SQ daily (WT < 150 kg, CrCl > 30 mL/min) *Enoxaparin/Lovenox 30 mg SQ daily (WT < 150 kg, CrCl > 10-29 mL/min) *Enoxaparin/Lovenox 30 mg SQ BID (WT < 150 kg, CrCl > 30 mL/min) AND/OR *Sequential Compression Device (SCD) 5 or more Highest Order ONE of the following medications: *Heparin 5000 units SQ TID (Preferred with Epidurals) *Enoxaparin/Lovenox 40 mg SQ daily (WT < 150 kg, CrCl > 30 mL/min) *Enoxaparin/Lovenox 30 mg SQ daily (WT < 150 kg, CrCl > 10-29 mL/min) *Enoxaparin/Lovenox 30 mg SQ BID (WT < 150 kg, CrCl > 30 mL/min) AND *Sequential Compression Device (SCD) Assessment and Plan Assessment and Plan Assessment: 72-year-old female with radical neck dissection and radiation therapy with concomitant aspiration pneumonia, acute hypoxic respiratory failure. Active problems: Acute metabolic encephalopathy secondary to hypercarbia CO2 narcosis Acute hypoxic respiratory failure Impossible airway Hemorrhagic shock Innominate artery injury Status post PEA arrest Aspiration pneumonia Severe acute respiratory acidosis Severe combined respiratory and metabolic acidosis Anemia secondary to acute blood loss Plan: Please see above narrative documentation of the series of events and daily plan. This patient remains critically ill with one or more organ systems which are or may become a threat to life. I have spent in excess of 114 minutes discontinuously in the care and management of this patient. This time is exclusive of procedures, and includes, but is not limited to, evaluation of the patient, review of the medical record, discussions with family, consultants, nursing staff, or respiratory therapy, and documentation in the medical record. Gen Sen MD Sep 21, 2017 09:52
[2017-09-21] MEDS ORDERED: IOHEXOL 350 MG/ML 10 ML VIAL (for RAD DIAG) IVCONTRAST ONE (11:20)
--- NOTE | 2017-09-21 11:31 | PD.PROCEDR ---
Procedure Note Procedure Diagnosis: Hypoxemic respiratory failure, acute aspiration, upper airway obstruction, status post previous tracheostomy Procedure: Percutaneous tracheostomy Indications: The patient developed severe hypoxemic respiratory failure following an aspiration event at the [facility]. Using bag mask ventilation she was rushed to the medical intensive care unit under the direction of the wool mixer. She was consistently hypoxemic despite bag mask ventilation. Attempts at oral tracheal intubation were unsuccessful because of a fairly rigid neck, mouth opening limited to less than 2 cm between the front teeth, and previous radical neck dissection cervical radiation therapy for an upper airway malignancy. I was called to the bedside to perform a surgical airway by the wool mixer/anesthesiologist at the head of the bed. The patient had desaturation to the point of bradycardia. Operation: Patient properly identified and CODE STATUS verified. The anterior neck was woody and thin. A previous tracheostomy scar was evident but the site was not patent to the airway. Manipulation of this site did not easily separate the edges and therefore I chose to place the trach in the lower side above the sternal notch. The innominate artery could be palpated at the depth of the sternal notch. A vertical incision was made in the midline below the previous tracheostomy. A saline filled syringe loaded with a large bore needle was delivered into the trachea and air bubbles visualized on aspiration. A wire was threaded to the level of the cindy in the standard Blue Rhino dilator was passed over the wire following initial dilatation with the preliminary dilator. A tracheostomy tube was then passed over the wire using the standard insertion dilator but a large amount of dark bleeding ensued. It became apparent that a major vascular injury had occurred. The trach tube was removed and the wound was packed tightly with 4 x 4 gauze. By this point a 6 mm tube was able to be inserted through the oral route using a gum bougie. Unfortunately this tube quickly filled with clotted blood. At this time I elected to reopen the old tracheostomy scar and attempt to get a larger bore formal tracheostomy tube into the tracheobronchial tree, hoping to be able to adequately suction the large amount of blood and clots from the airway. A pinhole opening through the old tracheostomy scar allowed insertion of a wire into the tracheobronchial tree and this allowed the passage of a blue Rhino dilator followed by a #8 Shiley tracheostomy tube into the airway. The indwelling 6 mm orotracheal tube was removed simultaneous to place and the new tracheostomy tube. A large amount of blood was aspirated from the tracheobronchial tree and we were able to more effectively ventilate the patient. During this procedure the patient clearly sustained a prolonged period of hypoxemia lasting at least 10 minutes. During the procedure the patient developed bradycardia and progressed to a pulseless electrical activity cardiac arrest. She required full ACLS support including chest compressions, ventilation, epinephrine injection for approximately 5 minutes. This is documented on a separate code sheet. I spoke on the phone with the patient's immediately after the procedure and expressed my concern that there was a prolonged period of hypoxemia and that a vascular injury had probably occurred. Aayush Painter MD Sep 21, 2017 11:31
[2017-09-21] MEDS ORDERED: NOREPINEPHRINE 4 MG/D5W 250 ML IV PRN (14:15)
[2017-09-21] MEDS ORDERED: LACTATED RINGER'S 1000 ML INJ 1,000 ML IV SCH (14:15)
--- NOTE | 2017-09-21 19:48 | PD.PROCEDR ---
Procedure Note Procedure Endotracheal Intubation Diagnosis: Acute hypoxic respiratory failure Indications: Acute hypoxic respiratory failure Consent: Emergent Anesthesia: Versed 10 mg IV, rocuronium 100 mg IV Description of the Procedure: For full description of this procedure, please see the accompanying history and physical. the patient was positioned in the sniffing position. Pre-oxygenation was performed using a [id number]. The ability to easily ventilate the patient was confirmed prior to neuromuscular blockade being given. #3 LMA, a nasal trumpet, and oral airway, a gum elastic bougie, a Cook exchange catheter, size 6.0, 6.5, 7.0, 7.5 endotracheal tubes were available. GlideScope video laryngoscope and a Davis #2 were all available prior to the induction of anesthesia. In addition, a Blue Rhino trach kit was available for surgical airway backup. First attempt: GlideScope was unable to be inserted into the mouth given poor oral opening. Second attempt: Davis #2 using a retromolar approach with a grade 3 view but unable to pass endotracheal tube or bougie. Third attempt: GlideScope with a grade 3 view, esophageal intubation which was immediately recognized Fourth attempt: GlideScope with a grade 3 view but successful placement of, lasting bougie, CPR in progress. 6.0 endotracheal tube was inserted over the gum elastic bougie. Immediate large volume of active bleeding came from the endotracheal tube which was aggressively suctioned. Confirmation of correct endotracheal tube placement was made by equal and bilateral breath sounds and colorimetric CO2 detection. The endotracheal tube was secured at 22 cm at the teeth. A chest x-ray has been ordered. I personally performed the procedure. Gen Sen MD Sep 21, 2017 19:48
--- NOTE | 2017-09-21 19:50 | PD.PROCEDR ---
Procedure Note Procedure Procedure: Therapeutic fiberoptic Bronchoscopy Diagnosis: Massive airway hemorrhage Indications: Need to clear airway of blood as well as confirm placement of emergent tracheostomy tube Consent: Emergent Anesthesia: Versed 10 mg IV, rocuronium 100 mg IV Description of the Procedure: The patient was sedated. The fiberoptic bronchoscopy was inserted via 8.0 Shiley cuffed tracheostomy tube. The trachea , right and left mainstem bronchi, and sub-segmental bronchi were evaluated. The endobronchial anatomy was normal. Findings: Massive amounts of bright red blood in all areas of the lung. These were aggressively suctioned. The trach was successfully in the lumen of the trachea. BAL samples: No samples were sent. A chest x-ray has been ordered. I personally performed the procedure. Gen Sen MD Sep 21, 2017 19:50
--- NOTE | 2017-09-21 19:51 | PD.PROCEDR ---
Procedure Note Procedure Procedure: Arterial Line Placement Left femoral 16-gauge 20 cm arterial line Diagnosis: Hemorrhagic shock Indications: Need for beat to beat hemogenic monitoring Consent: Emergent Description of the Procedure: The left groin was prepped and draped sterilely. The pulse was located and a needle was advanced into the artery. A 16 gauge, 20 cm catheter was advanced into the artery using a modified Seldinger technique. The catheter was sutured to the skin and a sterile dressing was applied. The catheter was connected to a pressure transducer and an arterial waveform was noted. There were no immediate complications noted. There was minimal EBL. I personally performed the procedure. Gen Sen MD Sep 21, 2017 19:51
--- NOTE | 2017-09-21 19:52 | PD.PROCEDR ---
Procedure Note Procedure Central Line Procedure Note Left femoral 8.5 [place] Cordis introducer sheath Diagnosis: Hemorrhagic shock Indications: Need for massive transfusion Consent: Emergent Anesthesia: Versed 10 mg IV Description of the Procedure: The patient was placed in the supine position. The area was prepped and draped sterilely. A 19g needle was inserted under negative pressure aspiration and dark venous blood was obtained. A guidewire was inserted easily without resistance. A small incision was made using a #11 blade. Using a modified Seldinger technique, the dilator and 8.5 [place], 10 cm catheter were advanced over the guidewire without resistance. All ports were aspirated and flushed, and had brisk blood return. The line was secured at the skin using 2-0 silk interrupted sutures. Suture was used instead of a non- suture StatLock device due to the configuration of the introducer sheath. A Biopatch and Transparent sterile dressing were applied. There were no immediate complications noted. There was minimal EBL. Ultrasound guidance was not used for this procedure I personally performed the procedure. Gen Sen MD Sep 21, 2017 19:52
--- NOTE | 2017-09-21 19:52 | HHI.DS ---
Summary Note Date of : Sep 21, 2017 Time Of : 1500 Admission Date Sep 21, 2017 at 07:44 Admitting Diagnosis Acute hypoxic respiratory failure Acute aspiration pneumonitis Diagnosis at Time of : Brief History This is a 72-year-old female who has a history of head neck cancer and status post radical neck dissection and subsequent radiation therapy whose medical course was complicated by persistent respiratory failure requiring LTAC level care, subsequently from mechanical ventilation and sent to inpatient rehab. On 09/17 she was rapid response for acute hypoxemia and a likely aspiration event after being decannulated. At that time she was clinically stable and [facility]. This morning rapid response was called for acute hypoxemia. I discussed the case with the rehab physician and emergently transported the patient down to the ICU where I met the patient. On arrival to the ICU, she was in extremis, in respiratory failure. Bag mask ventilation was instituted. It was noted at this time that I was able to easily mask ventilate the patient. Despite these of ventilation, the best oxygen saturation we can get on 100% Ambu bag was 86%. Immediately contacted my colleague Dr. Painter for airway backup. The patient had a clinical exam concerning for difficult airway, including a fixed anterior neck tissues with minimal movement, evidence of prior tracheostomy, minimal neck flexion and extension, nearly fixed jaw with less than 2 fingerbreadths mouth opening. However, given the degree of acute hypoxemia and respiratory failure, decision was made to move forward with emergent intubation. The patient was given 5 mg of Versed IV, but the patient' s rigid jaw would not allow for laryngoscopy. Given that we were successfully able to ventilate the patient easily, we proceeded then with rocuronium 100 mg IV. Despite neuromuscular blockade, her jaw mobility did not improve. Our first attempt at laryngoscopy was made with a GlideScope video laryngoscope, but I was unable to insert the GlideScope into the mouth to the poor mouth opening. On second laryngoscopy attempt, I used a Davis #2 with a retromolar approach was able to visualize the epiglottis. However, attempts at placing a gum elastic bougie anteriorly to the epiglottis were unsuccessful given the fixed nature of the tissues in the anterior neck. At this point laryngoscopy was aborted and mask ventilation was instituted again. The patient remains an easy mask at this time. On third laryngoscopy attempt, I was able to successfully place a glide scope into the mouth and again visualized the epiglottis with a grade 3 view. With the GlideScope, it should be noted that there is a significant amount of what appears to be tube feeds in the hypopharynx and these were aggressively suctioned. ET tube placement was difficult at this time, but the patient was worsening the hypoxemic. I placed the ET tube which did not have successful colorimetric CO2 detection, and esophageal intubation was immediately recognized, the ET tube was removed, and bag mask ventilation was again commenced. At this point, her saturations fell to 80%, and we could not improve her oxygen saturations. Dr. Painter and I made the decision at this time to pursue surgical airway, as we had failed multiple supraglottic airway attempts, in a patient with worsening hypoxic respiratory failure. Please see Dr. Borges's note for additional information. Upon first attempt at surgical airway, significant amount of bleeding was encountered which fell into the airway and prevented us from successfully ventilating the patient. Patient became bradycardic and went into PEA arrest, which point ACLS was instituted. During ACLS, I emergently attempted intubation and additional time with a GlideScope and a gum elastic bougie, which was successful and the ET tube was visualized going through the cords. At this point ROSC was obtained. There is a significant amount of blood in the airway which prevented us from successfully ventilating the patient. This was aggressively suctioned. At this time, Dr. Painter opened the prior tracheostomy incision and was able to place an 8.0 Shiley cuffed tracheostomy tube in the airway immediately distal to the endotracheal tube. This was confirmed with bronchoscopic evaluation of the tracheostomy tube to be in the lumen of the trachea. Therapeutic bronchoscopy was then performed to attempt to suction out the large volume of blood that was in the airway. At this point the patient was acutely hypotensive and tachycardic and likely hemorrhagic shock from blood loss. I emergently placed a 8.5 Kittitian Cordis introducer sheath as well as femoral arterial line for resuscitation. 4 units PRBC and 4 units FFP of uncrossed matched trauma blood was issued and emergently transfused. Patient was started on norepinephrine. Once more hemodynamically stable, we transported the patient emergently to CAT scan for CT chest abdomen and pelvis which demonstrated what appears to be innominate artery injury with pseudoaneurysm formation, mediastinal air. We were never able to successfully ventilate the patient, and the patient's pH remained approximately 6.7 with a PCO2 greater than 170. I long discussion with the family, and particularly the and daughter, where I relayed the emergent nature of the events and the likely vascular injury as well as the cardiac arrest secondary to hypoxia and the inability to secure the airway. The family expressed wishes to continue with aggressive measures, but make the patient DNR, as additional CPR has the high risk of dislodging the tracheostomy tube or causing worsening hemorrhage from the innominate artery injury. Despite our best efforts, the patient continued to decline both hemodynamically and respiratorily, and the patient . Significant Findings Laboratory Tests Test 09/21/17 08:46 09/21/17 09:45 09/21/17 12:47 Blood Gas HCO3 21 mmol/L (22-26) Blood Gas Base Excess -10.8 mmol/L (-2-2) -10.9 mmol/L (-2-2) -6.7 mmol/L (-2-2) Blood Gas Oxygen Saturation 33 % (90-100) 86 % (90-100) Arterial Blood pH 6.89 (7.380-7.420) 6.77 (7.380-7.420) 6.96 (7.380-7.420) Arterial Blood Partial Pressure CO2 118 mmHg (38-42) 171 mmHg (38-42) 113 mmHg (38-42) Arterial Blood Partial Pressure O2 36 mmHg (61-120) 191 mmHg (61-120) Arterial Blood Oxygen Content 2.2 Vol % (12.0-20.0) Blood Gas Hemoglobin 4.5 G/DL (12.0-16.0) 8.8 G/DL (12.0-16.0) Hospital Course This is a 72-year-old female who has a history of head neck cancer and status post radical neck dissection and subsequent radiation therapy whose medical course was complicated by persistent respiratory failure requiring LTAC level care, subsequently from mechanical ventilation and sent to inpatient rehab. On 09/17 she was rapid response for acute hypoxemia and a likely aspiration event after being decannulated. At that time she was clinically stable and return to [facility]. This morning rapid response was called for acute hypoxemia. I discussed the case with the rehab physician and emergently transported the patient down to the ICU where I met the patient. On arrival to the ICU, she was in extremis, in respiratory failure. Bag mask ventilation was instituted. It was noted at this time that I was able to easily mask ventilate the patient. Despite these of ventilation, the best oxygen saturation we can get on 100% Ambu bag was 86%. Immediately contacted my colleague Dr. Painter for airway backup. The patient had a clinical exam concerning for difficult airway, including a fixed anterior neck tissues with minimal movement, evidence of prior tracheostomy, minimal neck flexion and extension, nearly fixed jaw with less than 2 fingerbreadths mouth opening. However, given the degree of acute hypoxemia and respiratory failure, decision was made to move forward with emergent intubation. The patient was given 5 mg of Versed IV, but the patient' s rigid jaw would not allow for laryngoscopy. Given that we were successfully able to ventilate the patient easily, we proceeded then with rocuronium 100 mg IV. Despite neuromuscular blockade, her jaw mobility did not improve. Our first attempt at laryngoscopy was made with a GlideScope video laryngoscope, but I was unable to insert the GlideScope into the mouth to the poor mouth opening. On second laryngoscopy attempt, I used a Davis #2 with a retromolar approach was able to visualize the epiglottis. However, attempts at placing a gum elastic bougie anteriorly to the epiglottis were unsuccessful given the fixed nature of the tissues in the anterior neck. At this point laryngoscopy was aborted and mask ventilation was instituted again. The patient remains an easy mask at this time. On third laryngoscopy attempt, I was able to successfully place a glide scope into the mouth and again visualized the epiglottis with a grade 3 view. With the GlideScope, it should be noted that there is a significant amount of what appears to be tube feeds in the hypopharynx and these were aggressively suctioned. ET tube placement was difficult at this time, but the patient was worsening the hypoxemic. I placed the ET tube which did not have successful colorimetric CO2 detection, and esophageal intubation was immediately recognized, the ET tube was removed, and bag mask ventilation was again commenced. At this point, her saturations fell to 80%, and we could not improve her oxygen saturations. Dr. Painter and I made the decision at this time to pursue surgical airway, as we had failed multiple supraglottic airway attempts, in a patient with worsening hypoxic respiratory failure. Please see Dr. Borges's note for additional information. Upon first attempt at surgical airway, significant amount of bleeding was encountered which fell into the airway and prevented us from successfully ventilating the patient. Patient became bradycardic and went into PEA arrest, which point ACLS was instituted. During ACLS, I emergently attempted intubation and additional time with a GlideScope and a gum elastic bougie, which was successful and the ET tube was visualized going through the cords. At this point ROSC was obtained. There is a significant amount of blood in the airway which prevented us from successfully ventilating the patient. This was aggressively suctioned. At this time, Dr. Painter opened the prior tracheostomy incision and was able to place an 8.0 Shiley cuffed tracheostomy tube in the airway immediately distal to the endotracheal tube. This was confirmed with bronchoscopic evaluation of the tracheostomy tube to be in the lumen of the trachea. Therapeutic bronchoscopy was then performed to attempt to suction out the large volume of blood that was in the airway. At this point the patient was acutely hypotensive and tachycardic and likely hemorrhagic shock from blood loss. I emergently placed a 8.5 Kittitian Cordis introducer sheath as well as femoral arterial line for resuscitation. 4 units PRBC and 4 units FFP of uncrossed matched trauma blood was issued and emergently transfused. Patient was started on norepinephrine. Once more hemodynamically stable, we transported the patient emergently to CAT scan for CT chest abdomen and pelvis which demonstrated what appears to be innominate artery injury with pseudoaneurysm formation, mediastinal air. We were never able to successfully ventilate the patient, and the patient's pH remained approximately 6.7 with a PCO2 greater than 170. I long discussion with the family, and particularly the and daughter, where I relayed the emergent nature of the events and the likely vascular injury as well as the cardiac arrest secondary to hypoxia and the inability to secure the airway. The family expressed wishes to continue with aggressive measures, but make the patient DNR, as additional CPR has the high risk of dislodging the tracheostomy tube or causing worsening hemorrhage from the innominate artery injury. Despite our best efforts, the patient continued to decline both hemodynamically and respiratorily, and the patient . Gen Sen MD Sep 21, 2017 19:52
--- NOTE | 2017-09-22 13:37 | EKG ---
Date Performed: 09/21/2017 Time Performed: 11:22:16 PTAGE: 72 years EKG: ATRIAL FIBRILLATION WITH RAPID VENTRICULAR RESPONSE WITH ABERRANT CONDUCTION OR VENTRICULAR PREMATURE COMPLEXES SEPTAL MYOCARDIAL INFARCTION , PROBABLY OLD ABNORMAL ECG PREVIOUS TRACING 09/17/17 Atrial fibrillation appears to be new since the prior tracing. Loss o f R-wave in V1 and V2 is also noted. Septal infarct - age undetermined. Clinical correlation is recom mended. DOCTOR: Saeed Mancilla Interpretating Date/Time 09/22/2017 13:36:14
--- NOTE | 2017-09-23 10:03 | RADRPT ---
EXAM DATE: 09/21/2017 10:21 AM EDT AGE/SEX: 72 years / Female INDICATIONS: ETT, TRACH and Line placement. CLINICAL DATA: This is the patient's subsequent encounter. Patient reports that signs and symptoms h ave been present for 2 weeks and indicates a pain score of Nonresponsive. MEDICAL/SURGICAL HISTORY: Asthma. Chronic obstructive pulmonary disease. . ETT, Trach COMPARISON: [facility], CHEST SINGLE AP, 09/21/2017. . FINDINGS: 2 AP views of the chest demonstrate a normal-sized cardiac silhouette. EKG lines overlie the patient. Tracheostomy overlies the tracheal air shadow. No central line is appreciated. There is bibasilar ai rspace consolidation with small pleural-based opacities. Biapical opacity is stable. No pneumothorax is seen. Bones and soft tissues demonstrate no acute finding. CONCLUSION: 1. Tracheostomy appears in appropriate position. No pneumothorax is visualized. 2. No central line is identified. 3. Stable bilateral lower lung zone airspace consolidation with small bilateral pleural effusions, r ight larger than left. Electronically signed by: Jose C Douglas MD 09/21/2017 10:26 AM EDT
--- NOTE | 2017-09-23 10:04 | RADRPT ---
EXAM DATE: 09/21/2017 11:09 AM EDT AGE/SEX: 72 years / Female INDICATIONS: Respiratory distress. CLINICAL DATA: This is the patient's initial encounter. Patient reports that signs and symptoms have been present for 1 day and indicates a pain score of Nonresponsive. MEDICAL/SURGICAL HISTORY: Cardiovascular disease. Hypertension. Gastroesophageal reflux disease. throat cancer . bladder surgery RADIATION DOSE: 9.96 CTDI (mGy) ; Combined studies COMPARISON: [facility], CT PULMONARY ANGIOGRAM, 09/11/2017. . TECHNIQUE: Multiple contiguous axial images were obtained through the chest during bolus infusion of 97 ml Omnipaque 350 (iohexol) nonionic water-soluble contrast as a cumulative dose for multiple exa ms. Images were obtained in suspended respiration using multiple row detector helical technique. U sing automated exposure control and adjustment of the mA and/or kV according to patient size, radiati on dose was kept as low as reasonably achievable to obtain optimal diagnostic quality images. FINDINGS: Lungs: There is severe bilateral patchy airspace consolidation involving both the upper and lower humphrey ng zones but more severe in the lower lung zones bilaterally. No pneumothorax is present. The consoli dation has worsened since the prior CT. There is mild atelectasis in the right lower lobe adjacent to the pleural effusion. Mediastinum: Heart demonstrates no acute finding. There is a small pericardial effusion, increased f rom the prior study. Pneumomediastinum is present, also new since the prior study. Tracheostomy is no w present. There is an abnormality of the right brachiocephalic artery, new since the prior CT. There is an abnormal extraluminal collection of contrast medial to the vessel with surrounding soft tissue density. There are abnormal filling defects extending into the proximal right subclavian artery and right common carotid artery. Pleurae: There are small bilateral pleural effusions, right slightly larger than left. The volume of pleural fluid is similar to the prior study. Axillae: No lymphadenopathy. Musculoskeletal: The bones and soft tissues demonstrate no acute abnormality. There are degenerativ e changes of the thoracic spine. Miscellaneous: Please refer to abdomen and pelvis CT report for description of the subdiaphragmatic findings. CONCLUSION: 1. There is severe bilateral airspace consolidation involving the lungs diffusely. The airspace cons olidation has increased since the a prior study from 10 days ago. There are stable small bilateral pl eural effusions. 2. Tracheostomy has been placed in the interval. Pneumomediastinum is present. This may be related t o recent tracheostomy placement. Otherwise it is uncertain of uncertain etiology. 3. There is an abnormality of the proximal brachiocephalic artery suspicious for pseudoaneurysm/cont ained rupture. The abnormality measures approximately 1.6 x 0.9 cm and is new since the prior study. There are filling defects identified within the right common carotid artery and right subclavian chula ry likely representing thrombus. There is a small surrounding a perivascular hematoma. Small pericard ial effusion is present which was not present on the prior exam. 4. These findings were telephoned to Dr. Sen. Electronically signed by: Jose C Douglas MD 09/21/2017 11:33 AM EDT
--- NOTE | 2017-09-23 10:05 | RADRPT ---
EXAM DATE: 09/21/2017 11:17 AM EDT AGE/SEX: 72 years / Female INDICATIONS: Abdominal distension. CLINICAL DATA: This is the patient's initial encounter. Patient reports that signs and symptoms have been present for 1 day and indicates a pain score of Nonresponsive. MEDICAL/SURGICAL HISTORY: Hepatitis A. Hypertension. throat cancer . bladder surgery ORAL CONTRAST: No oral contrast ingested. RADIATION DOSE: 9.96 CTDI (mGy) ; Combined studies COMPARISON: No prior exams available for comparison. TECHNIQUE: Multiple contiguous axial images were obtained through the abdomen and pelvis following b olus infusion of 97 ml Omnipaque 350 (iohexol) nonionic water-soluble contrast as a cumulative dose for multiple exams. No oral contrast ingested. Using automated exposure control and adjustment of t he mA and/or kV according to patient size, the radiation dose was kept as low as reasonably achievabl e to obtain optimal diagnostic quality images. FINDINGS: Lower chest: Please refer to chest CT report for description of the supradiaphragmatic findings. Hepatobiliary: No acute liver abnormality is identified. There is periportal edema and gallbladder wa ll edema. No calcified stones are seen. There is mild pneumobilia. Kidneys: No hydronephrosis, stone, or mass. Adrenal Glands: Within normal limits. Spleen: Within normal limits. Pancreas: There is mild peripancreatic fluid. No mass or duct dilatation is present. Vascular: The aorta is nonaneurysmal. There is mild atherosclerotic disease. Left femoral arterial li ne is present. Bowel/Mesentery: Stomach is distended with fluid. G-tube is present. The jejunum has an appearance mcdaniel ggesting shock bowel. Colon is distended with air. No free intraperitoneal air is identified. There i s a small volume of free fluid in the pelvis. Abdominal Wall: No hernia is visualized. Retroperitoneum: No lymphadenopathy. Bladder: No wall thickening or mass. Reproductive: No acute abnormality is identified. Inguinal: No lymphadenopathy or hernia. Musculoskeletal: No acute osseous abnormality is identified. CONCLUSION: 1. There is a small volume of free fluid in the abdomen and pelvis including surrounding the pancrea s. 2. There is periportal edema and gallbladder wall edema. These findings can be seen with fluid resus citation. 3. The jejunum has a normal appearance which can sometimes be seen with hypovolemia. Electronically signed by: Jose C Douglas MD 09/21/2017 11:37 AM EDT
--- NOTE | 2017-09-23 10:05 | RADRPT ---
EXAM DATE: 09/21/2017 11:08 AM EDT AGE/SEX: 72 years / Female INDICATIONS: Altered mental status. CLINICAL DATA: This is the patient's initial encounter. Patient reports that signs and symptoms have been present for 1 day and indicates a pain score of Nonresponsive. MEDICAL/SURGICAL HISTORY: Hypertension. Hepatitis A. Gastroesophageal reflux disease. throat can cer . bladder surgery RADIATION DOSE: 57.38 CTDI (mGy) COMPARISON: POI, MR BRAIN W AND W/O CONTRAST, 05/01/2017. . TECHNIQUE: CT of the head without contrast. Using automated exposure control and adjustment of the mA and/or kV according to patient size, radiation dose was kept as low as reasonably achievable to ob tain optimal diagnostic quality images. FINDINGS: Cerebrum: There is mild generalized atrophy and ventricles are normal given the degree of atrophy. M ild periventricular white matter change is present. No midline shift, mass lesion, hemorrhage or acu te infarction. No extraaxial fluid collections are seen. Posterior Fossa: The cerebellum and brainstem demonstrate no acute abnormality. The 4th ventricle is midline. The cerebellopontine angle is within normal limits. Extracranial: There is chronic severe mucoperiosteal thickening within the left maxillary antrum. Skull: The calvaria is intact. No skull fracture. CONCLUSION: 1. No acute intracranial abnormality is identified. 2. Stable chronic severe mucoperiosteal thickening in the left maxillary sinus. Electronically signed by: Jose C Douglas MD 09/21/2017 11:16 AM EDT
== END 2017-09-21 15:00 | disposition expired | DRG 3 ==
LOC: HIMN 07:44
PROVIDERS: ADMIT Internal Medicine Critical Care Medicine; ATTEND Internal Medicine Critical Care Medicine
PROC: 0B113F4 Bypass Trachea to Cutaneous with Tracheostomy Device, Percutaneous Approach (ICD-10-PCS; principal; 2017-09-21)
PROC: 0B9M8ZZ Drainage of Bilateral Lungs, Via Natural or Artificial Opening Endoscopic (ICD-10-PCS; 2017-09-21)
PROC: 0BH17EZ Insertion of Endotracheal Airway into Trachea, Via Natural or Artificial Opening (ICD-10-PCS; 2017-09-21)
PROC: 5A1935Z Respiratory Ventilation, Less than 24 Consecutive Hours (ICD-10-PCS; 2017-09-21)
PROC: 04HL33Z Insertion of Infusion Device into Left Femoral Artery, Percutaneous Approach (ICD-10-PCS; 2017-09-21)
PROC: 30233L1 Transfusion of Nonautologous Fresh Plasma into Peripheral Vein, Percutaneous Approach (ICD-10-PCS; 2017-09-21)
PROC: 30233N1 Transfusion of Nonautologous Red Blood Cells into Peripheral Vein, Percutaneous Approach (ICD-10-PCS; 2017-09-21)
PROC: 5A19054 Respiratory Ventilation, Single, Nonmechanical (ICD-10-PCS; 2017-09-21)
PROC: 4A133B1 Monitoring of Arterial Pressure, Peripheral, Percutaneous Approach (ICD-10-PCS; 2017-09-21)
PROC: 02HV33Z Insertion of Infusion Device into Superior Vena Cava, Percutaneous Approach (ICD-10-PCS; 2017-09-21)
DX: J96.01 Acute respiratory failure with hypoxia (principal); J69.0 Pneumonitis due to inhalation of food and vomit; G93.41 Metabolic encephalopathy; E87.4 Mixed disorder of acid-base balance; D62 Acute posthemorrhagic anemia; D63.8 Anemia in other chronic diseases classified elsewhere; I10 Essential (primary) hypertension; S19.82XA Other specified injuries of cervical trachea, initial encounter; T81.19XA Other postprocedural shock, initial encounter; J95.09 Other tracheostomy complication; I46.9 Cardiac arrest, cause unspecified; R00.1 Bradycardia, unspecified; R00.0 Tachycardia, unspecified; Z66 Do not resuscitate; E78.5 Hyperlipidemia, unspecified; R47.02 Dysphasia; R33.9 Retention of urine, unspecified; K21.9 Gastro-esophageal reflux disease without esophagitis; Z79.52 Long term (current) use of systemic steroids; Z85.21 Personal history of malignant neoplasm of larynx; Z80.1 Family history of malignant neoplasm of trachea, bronchus and lung; Z92.3 Personal history of irradiation
CPT/HCPCS: 31600; 31624; 36430; 36556; 70450; 71045; 71260; 74177; 76937; 82805; 86850; 86900; 86901; 86920; 93005; 94002; A7521; J7120; P9016; P9017; Q9967